=== PATIENT | female | born 1985 | race Caucasian/White ===

== ENCOUNTER 2017-01-12 19:37 | Emergency (ER) | payer MEDICARE, MEDICAID ==
[~2017-01-12] VITALS: Wt 37.6 kg
[~2017-01-12 19:37] MED LIST: ACET-2161 PO; ACET325T10 PO; BISA10SU22 RECTALLY; CALC1TAB16 PO; CEPH-583 PO; DIAZ10TA4 PO; DIPH25TA23 PO; ESCI20TA30 PO; GABA-215 PO; GUAI118S10 PO; IBUP200C62 PO; LEVE750T13 PO; LOPE2TAB24 PO; MAGN400O4 PO; NA P133E37 RECTALLY; NAPR-849 PO; POLY255P2 PO; PSEU30TA31 PO; SENN1TAB7 PO; SENN8.6T12 PO; TIZA4TAB4 PO; ZOLP5TAB8 PO; [UNRECOGNIZED DRUG - CODE] PO
[2017-01-12 19:42] VITALS: Wt 37.6 kg
--- OUTSIDE RECORDS SUMMARY | 2017-01-12 19:42 | XMS REPORT | Referral Summary ---
Author Author [facility] Organization [facility] Address Unknown Phone Unavailable Care Team Providers Care Vb Net Developer Name Role Phone Odilon Justice Primary Care Physician [phone] Encounter VC Date(s): 05/02/15 - 05/02/15 [facility] [address] [place] [id number] Discharge Disposition: 01-Home or Self Care Attending Physician: Willa Ashton APRN Admitting Physician: Willa Ashton APRN Vital Signs No data available for this section Problem List Condition Effective Dates Status Health Status Informant Blood 1998 Active transfusion(Confirme d) Chicken Resolved pox(Confirmed) Constipation Active (disorder)(Confirmed ) Constipation(Confirm Resolved ed) cva(Confirmed) 1982 Resolved Depression(Confirmed Active ) 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 seizures Medications acetaminophen 325 mg oral tablet tabs, Oral, q4hr, 0 Refill(s) Start Date: 03/08/14 Status: Ordered Ambien 5 mg oral tablet 1 tabs, Oral, Bedtime (once a day), as needed for sleep, 0 Refill(s) Start Date: 03/08/14 Status: Ordered Bactrim DS 800 mg-160 mg oral tablet 1 tabs, Oral, Daily, 0 Refill(s) Start Date: 03/08/14 Status: Ordered Bactroban 2% topical ointment 1 margarita, Topical, BID, Apply to noelle area with nystatin and desitin, # 30 g, 0 Refill(s), Pharmacy: [facility] [place] Start Date: 12/24/14 Status: Ordered bisacodyl 10 mg rectal enema 1 Each, Rectal, Daily, as needed for constipation, # 37.5 mL, 0 Refill(s) Start Date: 03/08/14 Status: Ordered Desitin 40% topical ointment 1 margarita, Topical, BID, apply to noelle area with nystatin and bactroban., # 30 g, 1 Refill(s), Pharmacy: [facility] [place] Start Date: 12/20/14 Status: Ordered escitalopram 20 mg oral tablet 1 tabs, Oral, Daily, 0 Refill(s) Start Date: 03/08/14 Status: Ordered gabapentin 300 mg oral capsule 1 caps, Oral, TID, 0 Refill(s) Start Date: 03/12/14 Status: Ordered Hibiclens 4% topical soap See Instructions, WASH SKIN FROM NECK DOWN 2 TO 3 TIMES A WEEK AT BEDTIME AND [facility]: [phone], # 240 mL, 0 Refill(s), Pharmacy: [facility] [place] Start Date: 01/08/15 Status: Ordered levETIRAcetam 750 mg oral tablet 1 tabs, Oral, BID, 0 Refill(s) Start Date: 03/08/14 Status: Ordered Midol PM 500 mg-25 mg oral tablet 1 tabs, Oral, q4hr, PRN, 0 Refill(s) Start Date: 03/08/14 Status: Ordered Milk of Magnesia 30 mL, Oral, Daily, as needed for constipation, [facility], 3 Refill( s) Start Date: 01/08/15 Stop Date: 01/11/15 Status: Ordered Miscellaneous DME DME Item PATIENT LIFT DX: QUADRIPLEGIC LISA REQUIRES A LIFT TO TRANSFER BETWEEN BED & CHAIR, WHEELCHAIR OR COMMODE AND SHE REQUIRES 2 OR MORE PERSONS TO ASSIST HER WITHOUT THE LIFT, SHE WOULD BE BED-CONFINED. THE LIFT IS FOR HOME USE., See Inst... Start Date: 09/30/15 Status: Ordered nystatin 100,000 units/g topical cream 1 margarita, Topical, BID, apply to noelle area with desitin and bactroban., # 30 g, 1 Refill(s), Pharmacy: [facility] [place] Start Date: 12/20/14 Status: Ordered Senna S 3 tabs, Oral, BID, 0 Refill(s) Start Date: 03/08/14 Status: Ordered tiZANidine 4 mg oral tablet 1 tabs, Oral, q4hr, prn, 0 Refill(s) Start Date: 03/08/14 Status: Ordered Results No data available for this section Immunizations Vaccine Date Refusal Reason influenza virus vaccine, live 07/24/13 Procedures No data available for this section Social History Social History Type Response Smoking Status Never smoker Assessment and Plan No data available for this section
--- OUTSIDE RECORDS SUMMARY | 2017-01-12 19:42 | XMS REPORT | Referral Summary ---
Author Author [facility] Organization [facility] Address Unknown Phone Unavailable Care Team Providers Care Manager Of Procurement Name Role Phone Odilon Justice Primary Care Physician [phone] Encounter VC Date(s): 05/23/15 - 05/23/15 [facility] [address] [place] [id number] Discharge Disposition: 01-Home or Self Care Attending [...] AT BEDTIME AND [facility]: [phone], # 240 mL, 0 Refill(s), Pharmacy: Pharmacy [...]
--- OUTSIDE RECORDS SUMMARY | 2017-01-12 19:42 | XMS REPORT | Referral Summary ---
Author Author [facility] Organization [facility] Address Unknown Phone Unavailable Care Team Providers Care Scrubber Operator Name Role Phone Odilon Justice Primary Care Physician [phone] Encounter VC Date(s): 05/09/15 - 05/09/15 [facility] [address] [place] [id number]- Discharge Disposition: 01-Home or Self Care Attending Physician: Aubrie Justice MD Admitting Physician: Aubrie Justice MD Vital Signs No data available for this [...] AT BEDTIME AND [facility]: [phone], # 240 mL, 0 Refill(s), Pharmacy: Pharmacy [...]
--- OUTSIDE RECORDS SUMMARY | 2017-01-12 19:42 | XMS REPORT | Referral Summary ---
Author Author [facility] Organization [facility] Address Unknown Phone Unavailable Care Team Providers Care Chemistry Quality Control Technician Name Role Phone Odilon Justice Primary Care Physician [phone] Encounter VC Date(s): 04/18/15 - 04/18/15 [facility] [address] [place] [id number] Discharge Disposition: 01-Home or [...] AT BEDTIME AND [facility]: [phone], # 240 mL, 0 Refill(s), Pharmacy: Pharmacy [...]
--- OUTSIDE RECORDS SUMMARY | 2017-01-12 19:42 | XMS REPORT | Referral Summary ---
Author Author [facility] Organization [facility] Address Unknown Phone Unavailable Care Team Providers Care Supervisor Lead Refinery Name Role Phone Odilon Justice Primary Care Physician [phone] Encounter VC Date(s): 06/20/15 - 06/20/15 [facility] [address] [place] [id number] Discharge Disposition: 01-Home or Self Care Attending [...] AT BEDTIME AND [facility]: [phone], # 240 mL, 0 Refill(s), Pharmacy: Pharmacy [...] 01/11/15 Status: Ordered Miscellaneous DME DME Item OT/PT Evaluate and TX Posture seating in wheelchair, See Instructions, # 1 Each, 0 Refill(s), Supply Start Date: 12/26/15 Status: Ordered Miscellaneous DME DME Item PATIENT [...] with desitin and bactroban., # 30 g, 0 Refill(s), Pharmacy: [facility] [place] Start Date: 12/22/15 Status: Ordered Senna S 3 tabs, Oral, [...]
--- OUTSIDE RECORDS SUMMARY | 2017-01-12 19:42 | XMS REPORT | Referral Summary ---
Author Author [facility] Organization [facility] Address Unknown Phone Unavailable Care Team Providers Care Cloud Architect Name Role Phone Odilon Justice Primary Care Physician [phone] Encounter VC Date(s): 06/06/15 - 06/06/15 [facility] [address] [place] [id number] Discharge Disposition: 01-Home or [...] AT BEDTIME AND [facility]: [phone], # 240 mL, 0 Refill(s), Pharmacy: Pharmacy [...]
--- OUTSIDE RECORDS SUMMARY | 2017-01-12 19:42 | XMS REPORT | Referral Summary ---
Author Author [facility] Organization [facility] Address Unknown Phone Unavailable Care Team Providers Care Rotor Blade Installer Name Role Phone Odilon Justice Primary Care Physician [phone] Encounter VC Date(s): 03/27/15 - 03/27/15 [facility] [address] [place] [address] Discharge Disposition: 01-Home or Self Care Attending [...] AT BEDTIME AND [facility]: [phone], # 240 mL, 0 Refill(s), Pharmacy: Pharmacy [...]
[2017-01-12] MEDS ORDERED: AMOX500C2 PO (19:50)
[2017-01-12] MEDS ORDERED: [UNRECOGNIZED DRUG - CODE] TOP (19:56)
[2017-01-12] MEDS ORDERED: ZINC57OI3 TOP (19:56)
[2017-01-12] MEDS ORDERED: TRIA15CR3 TOP (19:57)
[2017-01-12] MEDS ORDERED: HYDR30CR57 TOP (19:58)
--- NOTE | 2017-01-12 19:59 | ERPDOC ---
Departure Disposition Decision Date: Jan 12, 2017 Disposition Decision Time: 22:28 Disposition: 01 DISCHARGED HOME, SELF-CARE Impression Impression Impression: Primary Impression: Fever Fever type: unspecified Qualified Codes: R50.9 - Fever, unspecified Severity: Moderate Condition: Stable Seen By: Mid-level only Referrals: MIGUE IVORY MD (PCP) VALERIY BAGLEY MD (Family) Patient Instructions: Fever in Adults (ED) Problems/Meds/Labs Reviewed?: Yes Medications reviewed and manag: Yes Additional Instructions: The labs and xray today were normal. Urine does not show infection. I do want her to take the Amoxicillin as prescribed. If she continues to have fever on Tuesday then please follow up with her primary care provider. She may need to have her labs rechecked. If she should have any vomiting or stops taking fluids or eating then please return to ER. Follow up care ordered?: Yes Mental Status: Alert HPI - Fever General Chief Complaint: Fever Stated Complaint: HIGH FEVER Time Seen by Provider: 19:43 Source: other (Staff member at bedside) Exam Limitations: clinical condition HPI - Fever Initial Comments Mary Lou is a developmentally delayed woman who is brought to the ER today by her caregiver. She has had a fever up to 102 for the last 5 days. They had been treating at home with OTC medications but the fever has kept coming back. She has not had any vomiting or diarrhea or cough that the caregiver is aware of. Mary Lou is non verbal. Has continued to eat and drink ok at home. Caregiver here does state that she has been crying at times which is unlike her but otherwise has been her usual self. Has had regular BM. Occurred At: home Onset: Gradual Duration: other (Over the last 5 days) Fever Quality: greater than 102 F Fever Therapy MAMMOGRAPHY SUPERVISOR: Ibuprofen Associated Symptoms: DENIES: nausea/vomiting Allergies: Coded Allergies: milk (Verified Allergy, Intermediate, Makes lots of phlegm, more coughing. , 11/19/15) Past History Patient Surgical History Spinal fusion c-spine to sacrum Possible RN OUTPATIENT SURGERY shunt Past Medical History Hx Echocardiogram: No GI: constipation Neurological: other, seizures Psychological: depression Surgical History General: back Family History Family PMH: FOUND: other Vaccines Hx Influenza Vaccination: No Hx Pneumococcal Vaccination: No Social History Smoking Status: Never smoker Substance Use Type: does not use Alcohol Intake: none Review of Systems Constitutional Constitutional: fever, DENIES: chills, dizziness, fatigue, weakness ENMT Ears: DENIES: drainage Sinuses: DENIES: congestion, rhinorrhea Mouth/Throat: DENIES: drooling, painful swallowing, scratchy throat, sore throat Pulmonary Respiratory: DENIES: cough GI Upper Abdomen: DENIES: nausea, vomiting Lower Abdomen: DENIES: diarrhea Integumentary Skin: DENIES: rash Physical Exam General General Nourishment: well nourished, well developed, appears stated age, no acute distress, adult, thin General Body Habitus: well groomed Vitals and Pain First Documented Vital Signs Date Time Temp Pulse Resp B/P Pulse Ox O2 Delivery O2 Flow Rate FiO2 01/12/17 19:42 101.9 112 24 117/60 95 Room Air Weight: Kilograms: Height (feet): 5 Height (inches): 0 Triage Pain Scale: RN VS reviewed by Provider: Yes Normal Exams: Neck: Full range of motion, without adenopathy, JVD, bruits or thyromegaly Chest/Resp: Clear all gaxiola, with good airflow, and symmetry bilaterally CV: Regular rate and rhythm, without murmur or gallop, Pulses 2+ all extremities, capillary refill, <2 seconds all ext., no pedal edema noted Lymphatic: No lymphadenopathy, or lymphedema noted Integumentary: No rashes, hives, or bruising noted Neurologic: Patient is alert (And is moaning regularly in the room) ENMT (brief) ENMT Brief: FOUND: TM clear, TM good light reflex, ear canals clear, mucosa moist, normal dentition, normal tonsils, NOT FOUND: lesions, nasal erythema, nasal exudate, nasal swelling, petechiae, pharnyx erythema, tonsillar deviation Abdomen (brief) Abdominal Brief: FOUND: bowel normo active x4, other (ABdominal exam is difficult. Patient does guard with palpation but unsure if this is due to pain or because she does not like the exam. ) Differential Diagnoses Considering: Appendicitis, Influenza, Otitis Media, Pharyngitis, Pneumonia, UTI , Viral Syndrome, Other (sepsis) Progress Results/Orders Orders Procedure Category Date Status Time Cbc W/Auto LAB 01/12/17 Complete Diff-Reflex Manual Bmp - Basic Metabolic LAB 01/12/17 Complete Panel Ua, Dip Wreflex LAB 01/12/17 Complete Microsc & [employer] Hat Linux Administrator 19:55 Chest 1 View RAD 01/12/17 Taken Iv Lock (Ed Only) EDM 01/12/17 Transmitted 19:55 Normal Saline (Normal PHA 01/12/17 Complete Saline Iv) 20:15 Acetaminophen PHA 01/12/17 Complete (Tylenol Extra 20:15 Hepatic Panel LAB 01/12/17 Complete Lipase LAB 01/12/17 Complete Lab Results Laboratory Tests Test 01/12/17 20:22 01/12/17 22:10 White Blood Count 11.8T/MM3 Red Blood Count 4.00M/MM3 Hemoglobin 12.0GM/DL Hematocrit 35.6% Mean Corpuscular Volume 89.0UM3 Mean Corpuscular Hemoglobin 30.0UUG Mean Corpuscular Hemoglobin Concent 33.7GM/DL RDW Standard Deviation 37.2FL Platelet Count 316T/MM3 Mean Platelet Volume 10.1UM3 Immature Granulocyte % (Auto) 0.3% Neutrophils (%) (Auto) 79.9% Lymphocytes (%) (Auto) 10.1% Monocytes (%) (Auto) 8.8% Eosinophils (%) (Auto) 0.7% Basophils (%) (Auto) 0.2% Absolute Immature Granulocyte (auto 0.03T/MM3 Absolute Neutrophils (auto) 9.5T/MM3 Absolute Lymphocytes (auto) 1.2T/MM3 Absolute Monocytes (auto) 1.0T/MM3 Absolute Eosinophils (auto) 0.1T/MM3 Absolute Basophils (auto) 0.0T/MM3 Turbidity < 20 Sodium Level 141MEQ/L Potassium Level 3.9MEQ/L Chloride Level 101MEQ/L Carbon Dioxide Level 27MEQ/L Anion Gap 13MEQ/L Blood Urea Nitrogen 11.0MG/DL Creatinine 0.4MG/DL Glomerular Filtration Rate Calc 184 BUN/Creatinine Ratio 28RATIO Glucose Level 119MG/DL Calculated Osmolality 271MOSM/KG Calcium Level 8.5MG/DL Total Bilirubin 0.40MG/DL Conjugated Bilirubin 0.00MG/DL Unconjugated Bilirubin 0.00MG/DL Icterus Index < 2 Aspartate Amino Transf (AST/SGOT) 18U/L Alanine Aminotransferase (ALT/SGPT) 25U/L Alkaline Phosphatase 98U/L Total Protein 6.4G/DL Albumin 3.2G/DL Globulin 3.2G/DL Albumin/Globulin Ratio 1.0RATIO Lipase 129U/L Chemistry Specimen Hemolysis < 15 Urine Collection Type Straight cath Urine Color Yellow Urine Turbidity Clear Urine pH 8.0 Urine Specific Gordon 1.010 Urine Protein Negative Urine Glucose (UA) Negative Urine Ketones Negative Urine Blood Negative Urine Nitrite Negative Urine Bilirubin Negative Urine Urobilinogen 0.2EU/DL Urine Leukocyte Esterase Negative Urinalysis Comment Microscopic not ind. Medications Current ED Medications Sodium Chloride (Normal Saline IV) 1,000 ml @ 500 mls/hr Q2H ONCE IV Last administered on 01/12/17 20:15; Start 01/12/17 at 20:15; Stop 01/12/17 at 22:14 ; Status DC Acetaminophen (Tylenol Extra Strength) 500 mg O ONCE PO Last administered on 20:15; Start 01/12/17 at 20:15; Stop 01/12/17 at 20:16; Status DC Progress Progress WBC is 11.8 and neutrophils are 79.9 without bands. CMP is normal. Lipase is normal. UA is clear. Chest xray without cardiopulmonary process noted. NS 750ml bolus given IV x1 in Er. Did discuss results with [facility] staff. She has been eating and drinking well at home and has not had any vomiting or diarrhea. Will have her continue with the Amoxicillin as prescribed. Follow up with Dr bagley as needed. MOOSE TOMAS APRN Jan 12, 2017 19:59
[2017-01-12] MEDS ORDERED: MENT71OI TOP (20:01)
[2017-01-12] MEDS ORDERED: NAPR-849 PO (20:03)
[2017-01-12] MEDS ORDERED: NORMAL SALINE 1,000 ML IV ONE (20:15)
[2017-01-12] MEDS ORDERED: ACETAMINOPHEN 500 MG TABLET PO ONE (20:15)
--- NOTE | 2017-01-12 20:21 | NUR ---
XR Portable in room
[2017-01-12 20:28] LABS: BASOPHILS % (AUTO) 0.2 % (0-2); EOSINOPHILS # (AUTO) 0.1 T/MM3 (0-0.5); EOSINOPHILS % (AUTO) 0.7 % (0-4); HCT - HEMATOCRIT 35.6 % (36-46); IMMATURE GRANULOCYTE # (AUTO) 0.03 T/MM3 (0.00-0.03); IMMATURE GRANULOCYTE % (AUTO) 0.3 % (0.0-0.5); LYMPHOCYTES # (AUTO) 1.2 T/MM3 (1-4.8); LYMPHOCYTES % (AUTO) 10.1 % (23-45); MEAN CORPUSCULAR HGB CONC(MCHC 33.7 GM/DL (31-37); MEAN PLATELET VOLUME 10.1 UM3 (9.4-12.4); MONOCYTES % (AUTO) 8.8 % (0-9.0); NEUTROPHILS #(AUTO)-ABSOLUTE 9.5 T/MM3 (1.8-7.7); NEUTROPHILS % (AUTO) 79.9 % (33-66); WBC - WHITE BLOOD COUNT 11.8 T/MM3 (4.5-11.0)
[2017-01-12 20:39] LABS: ANION GAP 13 MEQ/L (5-15); BUN/CREATININE RATIO 28 RATIO (6-26); CALCIUM 8.5 MG/DL (8.4-10.2); CHLORIDE 101 MEQ/L (98-107); CO2 - CARBON DIOXIDE 27 MEQ/L (22-30); CREATININE 0.4 MG/DL (0.7-1.2); GLOMERULAR FILTRATION RATE 184; GLUCOSE 119 MG/DL (65-110); POTASSIUM 3.9 MEQ/L (3.6-5); SODIUM 141 MEQ/L (134-144)
[2017-01-12 21:42] LABS: ALBUMIN 3.2 G/DL (3.5-5.0); ALKALINE PHOSPHATASE 98 U/L (38-126); ALT (SGPT) 25 U/L (9-52); AST (SGOT) 18 U/L (14-36); LIPASE 129 U/L (23-300); TOTAL PROTEIN 6.4 G/DL (6.3-8.2)
[2017-01-12 22:20] LABS: BLOOD, URINE NEGATIVE (NEGATIVE); COLOR,URINE YELLOW (YELLOW); LEUKOCYTE ESTERASE ,URINE NEGATIVE (NEGATIVE); NITRITE,URINE NEGATIVE (NEGATIVE); UROBILINOGEN,URINE 0.2 EU/DL (NORMAL)
[2017-01-12 23:05] VITALS: BP 115/67; PULSE 97; RESP 24; TEMP 99.8; O2SAT 97
--- NOTE | 2017-01-13 08:10 | DI ---
Indication: ITS.REASON: fever PROCEDURE: CHEST 1 VIEW: Encounter: Initial Comparison: November 19, 2015 Findings: Chronically abnormal appearance of the lungs with prominent interstitial markings and some right midlung opacity. No new pleural effusion or pneumothorax. Cardiomediastinal contours are stable. Pulmonary vascularity cannot be evaluated on this supine view. Extensive thoracolumbar scoliosis fusion. Impression: Stable abnormal appearance of the chest. Recommend clinical and laboratory correlation for any evidence of pneumonia. .
== END 2017-01-12 23:05 | disposition home or self-care (01) ==
LOC: ED 19:37
DX: R50.9 Fever, unspecified (principal)
CPT/HCPCS: 36415; 71010; 80048; 80076; 81003; 83690; 85025; 96360; 96361; 99284; A9270; J7030; 36000

== ENCOUNTER 2017-01-22 15:55 | Emergency (ER) | payer MEDICARE, MEDICAID ==
[~2017-01-22] VITALS: Ht 157.5 cm; Wt 50.0 kg
[~2017-01-22 15:55] MED LIST changes: +AMOX500C2 PO; -CEPH-583 PO; +HYDR30CR57 TOP; +MENT71OI TOP; +TRIA15CR3 TOP; +ZINC57OI3 TOP; +[UNRECOGNIZED DRUG - CODE] TOP
[2017-01-22 16:00] VITALS: Ht 157.5 cm; Wt 50.0 kg
--- OUTSIDE RECORDS SUMMARY | 2017-01-22 16:01 | XMS REPORT | Continuity of Care Document ---
Author Author [facility] Organization [facility] Address Unknown Phone Unavailable Support Name Relationship Address Phone VALERIY HULL MD Caregiver [address] [place] [address] Unavailable JANUARYCECILIO DO Caregiver [address] [place] [address] Unavailable DALILA YOUNG (GUARDIAN) Next Of Kin [address] [place], [place] [id number] C Insurance Providers Guarantor Mary Lou Young Address [address] [place] [address] [phone] Email UNABLE TO ASK 17 Payer [facility] Plan Policy Number [id number] Subscriber's Name Mary Lou Young Relationship 18 Self Effective Date 16 Expiration Date 17 Payer Medicare Policy Number [id number] Subscriber's Name Mary Lou Young Relationship 18 Self Advance Directives Directive Response Recorded Date/Time Advanced Directives Type None 01/12/17 7:42pm Chief Complaint and Reason for Visit Chief Complaint Fever Reason for Visit Fever Problems Active Problems Medical Problem Onset Date Status Aspiration pneumonia Unknown Acute Cardiomegaly Unknown Acute Cerebral palsy Unknown Chronic Complete immobility due to severe physical disability or frailty Unknown Acute Constipation Unknown Chronic Constipation Unknown Acute Early UTI Unknown Acute HCAP (healthcare-associated pneumonia) Unknown Acute Head contusion Unknown Acute Hypotensive episode Unknown Acute Hypovolemia Unknown Acute Mental retardation Unknown Chronic Pneumonia Unknown Acute Quadriplegia Unknown Chronic Seizure disorder Unknown Chronic Subconjunctival Bleed Unknown Acute pulled from wheelchair no obvious trauma Unknown Acute Surgical Problem Onset Date Status H/O spinal fusion Unknown Acute Past Problems Medical Problem Onset Date Fever Unknown Medications Current Home Medications Medication Dose Units Route Directions Days Qty Instructions Start Date Acetaminophen 325 Mg Tablet 2 Tab Oral Every 4 Hours as needed for Pain 05/12/12 Acetaminophen (Acetaminophen Extra Strength) 500 Mg Tablet 2 Tab Oral Every 4 Hours as needed for Pain 07/08/15 Amoxicillin 500 Mg Capsule 500 Mg Oral Twice A Day 01/12/17 Bisacodyl (Biscolax) 10 Mg Supp.rect 1 Supp Rectally As Needed Calcium Carbonate 500 Mg Tablet 2 Tab Oral Every 4 Hours as needed for Indigestion 07/08/15 Diazepam 10 Mg Tablet 10 Mg Oral Bedtime prior to dental appts 11/04 Diphenhydramine Hcl 25 Mg Tablet 25-50 Mg Oral Every 4 Hours as needed for Allery Symptoms 11/19/15 Escitalopram Oxalate 20 Mg Tablet 20 Mg Oral Daily 05/12/12 Gabapentin 300 Mg Capsule 600 Mg Oral Three Times A Day 09/06/13 Guaifenesin/Dextromethorphan (Tussin Dm Clear Liquid) 118 Ml Syrup 10 Ml Oral Every 4 Hours Prn as needed for Cough 07/09/15 Hydrocortisone (Proctocream-Hc) 30 Gm Cream.appl 1 Applic Topically Twice A Day as needed for Prn Orders 01/12/17 Ibuprofen 200 Mg Capsule 2 Cap Oral Every 4 Hours as needed for Headache 07/09/15 Levetiracetam 750 Mg Tab.er.24h 750 Mg Oral Twice A Day 05/12/12 Loperamide Hcl (Loperamide) 2 Mg Tablet 4 Mg Oral As Needed as needed for Constipation 07/08/15 Mag Hydrox/Al Hydrox/Simeth (Antacid Anti-Gas Liquid) 355 Ml Oral.susp 20 Ml Oral Every 4 Hours Prn 07/09/15 Magnesium Hydroxide (Milk Of Magnesia) 400 Mg/5 Ml Oral.susp 30 Ml Oral Daily as needed for Constipation 07/09/15 Menthol/Zinc Oxide (Calmoseptine Ointment) 71 Gm Oint...g. 1 Applic Topically Twice A Day as needed for Prn Orders Apply 2 times a day. Na Phos,M-B/Na Phos,Di-Ba (Enema Ready To Use) 133 Ml Enema 1 Enema Rectally As Needed 07/09/15 Naproxen Sodium (Midol) 220 Mg Tablet 220 Mg Oral Twice Daily With Meals as needed for Pain 01/12/17 Nyst/Sedit/Mupir 1 Applic Topically Twice A Day as needed for Prn Orders 01/12/17 Polyethylene Glycol 3350 255 Gm Powder 17 G Oral Twice A Day Pseudoephedrine Hcl (Sudogest) 30 Mg Tablet 30 Mg Oral Twice A Day as needed for Cough/Congestion 11/19/15 Sennosides (Senna Lax) 8.6 Mg Tablet 2 Tab Oral Daily as needed for Constipation 03/04/15 Sennosides/Docusate Sodium (Senna-Docusate Sodium Tablet) 1 Each Tablet 2 Tab Oral Twice A Day 07/08/15 Tizanidine Hcl 4 Mg Tablet 4 Mg Oral Four Times Daily 02/07/15 Triamcinolone (Triamcinolone Acetonide) 15 Applic/15 G Cr 1 Applic Topically Twice A Day 01/12/17 Zinc Oxide (Desitin) 57 Gm Cream..g. 1 Applic Topically Four Times Daily 01/12/17 Zolpidem Tartrate 5 Mg Tablet 5 Mg Oral Bedtime as needed for Sleeplessness 03/04/15 Social History Social History Problem Response Recorded Date/Time Onset Date Status Hx Substance Use No 01/12/2017 8:48pm Not Applicable Not Applicable Hx Alcohol Use No 01/12/2017 8:48pm Not Applicable Not Applicable Has the pt used tobacco in the last 12 months No 02/07/2015 10:00pm Not Applicable Not Applicable Tobacco Usage none 02/07/2015 8:33pm Not Applicable Not Applicable Query Response Start Date Stop Date Smoking Status Never smoker Hospital Discharge Instructions No hospital discharge instructions. Plan of Care Discharge Date 01/12/17 11:05pm Disposition 01 DISCHARGED HOME, SELF-CARE Condition at Discharge Stable Instructions/Education Provided Fever in Adults (ED) Prescriptions See Medication Section Referrals VALERIY HULL MD Address: [address] [place] [address] [phone] Additional Instructions/Education The labs and xray today were normal. Urine does not show infection. I do want her to take the Amoxicillin as prescribed. If she continues to have fever on Tuesday then please follow up with her primary care provider. She may need to have her labs rechecked. If she should have any vomiting or stops taking fluids or eating then please return to ER. Care Plan and Goals Physician Care Plan Problem:Fever Goal: Follow up with primary care provider Instructions: Take medications and follow care plan as discussed/written Functional Status No functional status results. Allergies, Adverse Reactions, Alerts Allergen Type Severity Reaction Status Last Updated Milk Allergy Intermediate Makes lots of phlegm, more coughing. Active 11/04 Immunizations Query Response on File Recorded Date/Time Hx Influenza Vaccination No 03/04/15 5:58pm Hx Pneumococcal Vaccination No 03/04/15 5:58pm Hx Influenza Vaccination No 03/04/15 5:58pm Vital Signs Acute Vital Signs Vital Response Date/Time Temperature (Fahrenheit) 99.8 deg F (96.8 - 99.1) 01/12/2017 11:05pm Temperature (Calculated Celsius) 37.01668 degrees C (36.0 - 37.3) 01/12/2017 11:05pm Pulse Rate (adult) 97 bpm (60 - 100) 01/12/2017 11:05pm Respiratory Rate 24 breaths/min (10 - 20) 01/12/2017 11:05pm O2 Sat by Pulse Oximetry 97 % (90 - 100) 01/12/2017 11:05pm Blood Pressure 115/67 mm Hg 01/12/2017 11:05pm Height (Inches) 0 inches 01/12/2017 7:42pm Weight (Kilograms) 37.600 kg 01/12/2017 7:42pm Body Mass Index (BMI) .0 01/12/2017 7:42pm Results Laboratory Results Test Name Result Units Flags Reference Collection Date/Time Result Date/ Time Comments White Blood Count 11.8 T/MM3 H 4.5-11.0 01/12/2017 8:22pm 01/12/2017 8: 28pm Red Blood Count 4.00 M/MM3 4.00-5.20 01/12/2017 8:22pm 01/12/2017 8: 28pm Hemoglobin 12.0 GM/DL 12-16 01/12/2017 8:pm 01/12/2017 8:28pm Hematocrit 35.6 % L 36-46 01/12/2017 8:22pm 01/12/2017 8:28pm Mean Corpuscular Volume 89.0 UM3 80-100 01/12/2017 8:22pm 01/12/2017 8: 28pm Mean Corpuscular Hemoglobin 30.0 UUG 26-34 01/12/2017 8:22pm 2016 8:28pm Mean Corpuscular Hemoglobin Concent 33.7 GM/DL 31-37 01/12/2017 8:pm 01/12/2017 8:28pm RDW Standard Deviation 37.2 FL 36.9-50.2 01/12/2017 8:01/12/2017 8 :28pm Platelet Count 316 T/MM3 130-400 01/12/2017 8:01/12/2017 8:28pm Mean Platelet Volume 10.1 UM3 9.4-12.4 01/12/2017 8:01/12/2017 8: 28pm Neutrophils (%) (Auto) 79.9 % H 33-66 01/12/2017 8:01/12/2017 8: 28pm Lymphocytes (%) (Auto) 10.1 % L 23-45 01/12/2017 8:01/12/2017 8: 28pm Monocytes (%) (Auto) 8.8 % 0-9.0 01/12/2017 8:01/12/2017 8:28pm Eosinophils (%) (Auto) 0.7 % 0-4 01/12/2017 8:01/12/2017 8:28pm Basophils (%) (Auto) 0.2 % 0-2 01/12/2017 8:01/12/2017 8:28pm Immature Granulocyte % (Auto) 0.3 % 0.0-0.5 01/12/2017 8:2016 8:28pm Absolute Neutrophils (auto) 9.5 T/MM3 H 1.8-7.7 01/12/2017 8:2016 8:28pm Absolute Lymphocytes (auto) 1.2 T/MM3 1-4.8 01/12/2017 8:2016 8:28pm Absolute Monocytes (auto) 1.0 T/MM3 H 0-0.8 01/12/2017 8:2016 8:28pm Absolute Eosinophils (auto) 0.1 T/MM3 0-0.5 01/12/2017 8:2016 8:28pm Absolute Basophils (auto) 0.0 T/MM3 0-0.2 01/12/2017 8:01/12/2017 8:28pm Absolute Immature Granulocyte (auto 0.03 T/MM3 0.00-0.03 01/12/2017 8: 01/12/2017 8:28pm Icterus Index < 2 0-7 01/12/2017 8:01/12/2017 9:42pm Chemistry Specimen Hemolysis < 15 0-25 01/12/2017 8:01/12/2017 9 :42pm 0-25: Specimen Exhibited No Hemolysis. Turbidity < 20 0-20 01/12/2017 8:01/12/2017 9:42pm Sodium Level 141 MEQ/L 134-144 01/12/2017 8:01/12/2017 8:39pm Potassium Level 3.9 MEQ/L 3.6-5 01/12/2017 8:01/12/2017 8:39pm Chloride Level 101 MEQ/L 98-107 01/12/2017 8:01/12/2017 8:39pm Carbon Dioxide Level 27 MEQ/L 22-01/12/2017 8:01/12/2017 8: 39pm Anion Gap 13 MEQ/L 5-15 01/12/2017 8:01/12/2017 8:39pm Blood Urea Nitrogen 11.0 MG/DL 7-01/12/2017 8:01/12/2017 8: 39pm Creatinine 0.4 MG/DL L 0.7-1.2 01/12/2017 8:01/12/2017 8:39pm BUN/Creatinine Ratio 28 RATIO H 03-1401/12/2017 8:01/12/2017 8: 39pm Glomerular Filtration Rate Calc 184 01/12/2017 8:01/12/2017 8: 39pm Glucose Level 119 MG/DL H 65-110 01/12/2017 8:01/12/2017 8:39pm Calculated Osmolality 271 MOSM/KG 261-280 01/12/2017 8:01/12/2017 8:39pm Calcium Level 8.5 MG/DL 8.4-10.2 01/12/2017 8:01/12/2017 8:39pm Total Bilirubin 0.40 MG/DL 0.20-1.30 01/12/2017 8:01/12/2017 9: 42pm Unconjugated Bilirubin 0.00 MG/DL 0.00-1.10 01/12/2017 8:2016 9:42pm Conjugated Bilirubin 0.00 MG/DL 0.00-0.30 01/12/2017 8:01/12/2017 9:42pm Alkaline Phosphatase 98 U/L 38-126 01/12/2017 8:01/12/2017 9:42pm Total Protein 6.4 G/DL 6.3-8.2 01/12/2017 8:pm 01/12/2017 9:42pm Albumin 3.2 G/DL L 3.5-5.0 01/12/2017 8:01/12/2017 9:42pm Globulin 3.2 G/DL 2.4-3.6 01/12/2017 8:pm 01/12/2017 9:42pm Albumin/Globulin Ratio 1.0 RATIO L 1.1-2.2 01/12/2017 8:pm 01/12/2017 9:42pm Aspartate Amino Transf (AST/SGOT) 18 U/L 14-36 01/12/2017 8:pm 2016 9:42pm Alanine Aminotransferase (ALT/SGPT) 25 U/L 9-52 01/12/2017 8:01/12 9:42pm Lipase 129 U/L 23-300 01/12/2017 8:01/12/2017 9:42pm Urine Collection Type STRAIGHT CATH 01/12/2017 10:01/12/2017 10:20pm Urine Color YELLOW YELLOW 01/12/2017 10:01/12/2017 10:20pm Urine Turbidity CLEAR CLEAR 01/12/2017 10:1001/12/2017 10:20pm Urine Specific [place] 1.010 L 1.015-1.025 01/12/2017 10:102016 10:20pm Urine pH 8.0 5.0-8.0 01/12/2017 10:1001/12/2017 10:20pm Urine Leukocyte Esterase NEGATIVE NEGATIVE 01/12/2017 10:2016 10:20pm Urine Nitrite NEGATIVE NEGATIVE 01/12/2017 10:1001/12/2017 10: 20pm Urine Protein NEGATIVE NEGATIVE 01/12/2017 10:1001/12/2017 10: 20pm Urine Glucose (UA) NEGATIVE NEGATIVE 01/12/2017 10:1001/12/2017 10 :20pm Urine Ketones NEGATIVE NEGATIVE 01/12/2017 10:10pm 01/12/2017 10: 20pm Urine Urobilinogen 0.2 EU/DL NORMAL 01/12/2017 10:10pm 01/12/2017 10: 20pm Urine Bilirubin NEGATIVE NEGATIVE 01/12/2017 10:10pm 01/12/2017 10: 20pm Urine Blood NEGATIVE NEGATIVE 01/12/2017 10:10pm 01/12/2017 10:20pm Urinalysis Comment MICROSCOPIC NOT IND. 01/12/2017 10:10pm 2016 10:20pm Procedures No known history of procedures. Encounters Encounter Location Arrival/Admit Date Discharge/Depart Date Attending Provider Departed Emergency Room [facility] 01/12/17 7:37pm 01/12/17 11: 05pm CECILIO LU DO Recent Diagnosis
--- NOTE | 2017-01-22 16:16 | NUR ---
VISUAL ACUITY UNABLE TO DO VISUAL ACUITY DUE TO CEREBAL PALSY AND PT. BEING NON VERBAL.
[2017-01-22] MEDS ORDERED: ERYT1OIN7 OP (16:33)
--- NOTE | 2017-01-22 16:35 | ERPDOC ---
Departure Disposition Decision Date: January 22, 2017 Disposition Decision Time: 16:31 Disposition: 01 DISCHARGED HOME, SELF-CARE Impression Impression Impression: Primary Impression: Conjunctivitis Qualified Codes: H10.32 - Unspecified acute conjunctivitis, left eye Additional Impression: Person with feared complaint, no diagnosis made Severity: Moderate Condition: Stable Seen By: Physician only Referrals: VALERIY HULL MD (Family) 3 Days Patient Instructions: Conjunctivitis (ED) Problems/Meds/Labs Reviewed?: Yes Medications reviewed and manag: Yes Additional Instructions: Mary Lou has an eye infection. Use the antibiotic as prescribed to clear this infection. The redness and mottling on her feet does not appear to be pathologic - keep her feet covered when cool and uncovered when warm. Elevate her feet at least twice daily to encourage circulation. Follow up care ordered?: Yes Mental Status: Alert Scripts Erythromycin Base (Erythromycin) 1 Gm Oint...g. 1 INCH OP QID for 5 Days Prov: JANUARYCECILIO DO 01/22/17 HPI - EENT General General Chief Complaint: Eye Problems Stated Complaint: LEFT EYE SWOLLEN, RIGHT FOOT SWOLLEN,COLD Time Seen by Provider: 16:08 Source: RN/MD Exam Limitations: clinical condition HPI - EENT General Initial Comments 31yo woman with h/o CP presented to the ED for left eye swelling/drainage and right leg 'redness' and 'swelling'. Pt awoke this AM with drainage and matting of her left eye. She has had 'swelling' and 'redness' of her right foot off/on for the last day or two. Occurred At: home Onset/Timing: Rapid Duration: 12-24 hrs Location: eye (L) Prearrival Treatment: no prearrival treatment Allergies: Coded Allergies: milk (Verified Allergy, Intermediate, Makes lots of phlegm, more coughing. , 01/22/17) Past History Unable to Obtain PMH Due to: clinical condition Patient Medical History (1) Cerebral palsy (2) Mental retardation Patient Surgical History Spinal fusion c-spine to sacrum Possible LENS DOTTER shunt Past Medical History Hx Echocardiogram: No GI: constipation Neurological: other, seizures Psychological: depression Surgical History General: back Family History Family PMH: FOUND: other Vaccines Hx Influenza Vaccination: No Hx Pneumococcal Vaccination: No Social History Substance Use Type: does not use Alcohol Intake: none Review of Systems Unable to Obtain ROS Due to: clinical condition Physical Exam General General Nourishment: well nourished, well developed, no acute distress, adult, thin General Body Habitus: disheveled Vitals and Pain First Documented Vital Signs Date Time Temp Pulse Resp B/P Pulse Ox O2 Delivery O2 Flow Rate FiO2 01/22/17 16:00 99.2 95 22 112/69 91 Room Air Weight: Kilograms: 50.000 Height (feet): 5 Height (inches): 2.00 Triage Pain Scale: RN VS reviewed by Provider: Yes Eyes (brief) Eyes Brief: found: EOMI, PERRL, other (Thick, purulent exudate of left eye with dried matter surrounding. Mild ptosis on left.), not found: foreign body, papilledema, scleral icterus Integumentary (brief) Integumentary Brief: FOUND: pink, warm Comments Cutis marmorata b/l LE's without edema, induration, or fluctuance. DP/PT intact b/l Supervisory Exam Head: atraumatic Nares: no exudate Neck: trachea midline Chest: symmetric Abdomen: non-distended Musculoskeletal: no deformity or atrophy Neurological: no abnormal movements Psychological: alert Differential Diagnoses Considering: Cellulitis, Conjunctivitis, Corneal Foreign Body, Pharyngitis, Sinusitis, URI Progress Progress Progress Pt with obvious bacterial conjunctivitis and no cause of her LE sx. Will treat pts conjuncitivitis. Pts adjustment supervisor voiced understanding. CECILIO LU DO January 22, 2017 16:35
[2017-01-22 16:48] VITALS: BP 110/62; PULSE 86; RESP 22; TEMP 99.2; O2SAT 91
--- NOTE | 2017-01-22 16:48 | NUR ---
DISCHARGE WRITTEN INSTRUCTIONS WITH ERYTHROMYCIN RX REVIEWED AND SENT WITH [facility] CAREGIVER. CAREGIVER VERBALIZES UNDERSTANDING OF DI AND MEDICATION, DENIES QUESTIONS. PT EXITS ER BY W/C PER [facility] STAFF AT THIS TIME.
== END 2017-01-22 16:48 | disposition home or self-care (01) ==
LOC: ED 15:55
DX: H10.32 Unspecified acute conjunctivitis, left eye (principal); L53.9 Erythematous condition, unspecified; M79.89 Other specified soft tissue disorders

== ENCOUNTER 2017-02-03 16:34 | Inpatient (IN) | payer MEDICARE, MEDICAID ==
[~2017-02-03] VITALS: Ht 147.3 cm; Wt 38.2 kg
--- OUTSIDE RECORDS SUMMARY | 2017-02-03 16:38 | XMS REPORT | Continuity of Care Document ---
Author Author [facility] Organization [facility] Address Unknown Phone Unavailable Support Name Relationship Address Phone VALERIY HULL MD Caregiver [address] [place] [address] Unavailable JANUARYCECILIO DO Caregiver [address] [place] [address] Unavailable DALILA YOUNG (GUARDIAN) Next Of Kin [address] [place], [place] [id number] C Insurance Providers Guarantor Mary Lou Young Address [address] [place] [address] [phone] Email UNABLE TO ASK 17 Payer [facility] Plan Policy Number [id number] Subscriber's Name YoungMary Lou M Relationship 18 Self Effective Date 17 Expiration Date 17 Payer Medicare Policy Number [id number] Subscriber's Name HectorMary Lou Hinds Relationship 18 Self Chief Complaint and Reason for Visit Chief Complaint Eye Problems Reason for Visit [id number] Conjunctivitis Problems Active Problems Medical Problem Onset Date [...] Acute Past Problems Medical Problem Onset Date Conjunctivitis Unknown Fever Unknown Person with feared complaint, no diagnosis made Unknown Medications Current Home Medications Medication Dose Units Route Directions Days Qty Instructions Start Date Acetaminophen 325 Mg Tablet 2 Tab Oral Every 4 Hours as needed for Pain 05/12/12 Acetaminophen (Acetaminophen Extra Strength) 500 Mg Tablet 2 Tab Oral Every 4 Hours as needed for Pain 07/08/15 Bisacodyl (Biscolax) 10 Mg Supp.rect 1 Supp Rectally As Needed Calcium Carbonate 500 Mg Tablet 2 Tab Oral Every 4 Hours as needed for Indigestion 07/08/15 Diazepam 10 Mg Tablet 10 Mg Oral Bedtime prior to dental appts 11/04 Diphenhydramine Hcl 25 Mg Tablet 25-50 Mg Oral Every 4 Hours as needed for Allery Symptoms 11/19/15 Erythromycin Base (Erythromycin) 1 Gm Oint...g. 1 Inch Ophthalmic Four Times Daily 5 Days 01/22/17 Escitalopram Oxalate 20 Mg Tablet 20 Mg [...] none 02/07/2015 8:33pm Not Applicable Not Applicable Hospital Discharge Instructions No hospital discharge instructions. Plan of Care Discharge Date 01/22/17 4:48pm Disposition 01 DISCHARGED HOME, SELF-CARE Condition at Discharge Stable Instructions/Education Provided Conjunctivitis (ED) Prescriptions See Medication Section Referrals VALERIY HULL MD Order Date: 3 Days Address: [address] [place] [phone] Note: Additional Instructions/Education Mary Lou has an eye infection. Use the antibiotic as prescribed to clear this infection. The redness and mottling on her feet does not appear to be pathologic - keep her feet covered when cool and uncovered when warm. Elevate her feet at least twice daily to encourage circulation. Care Plan and Goals Physician Care Plan Problem: Conjunctivitis Goal: Follow up with primary care provider Instructions: Take medications and follow care plan as discussed/written Functional Status No functional status results. Allergies, Adverse Reactions, Alerts Allergen Type Severity Reaction Status Last Updated Milk Allergy Intermediate Makes lots of phlegm, more coughing. Active 03/05 Immunizations Query Response on File Recorded Date/Time Hx Influenza Vaccination No 03/04/15 5:58pm Hx Pneumococcal Vaccination No 03/04/15 5:58pm Hx Influenza Vaccination No 03/04/15 5:58pm Vital Signs Acute Vital Signs Vital Response Date/Time Temperature (Fahrenheit) 99.2 deg F (96.8 - 99.1) 01/22/2017 4:00pm Temperature (Calculated Celsius) 37.31877 degrees C (36.0 - 37.3) 01/22/2017 4:00pm Pulse Rate (adult) 95 bpm (60 - 100) 01/22/2017 4:00pm Respiratory Rate 22 breaths/min (10 - 20) 01/22/2017 4:00pm O2 Sat by Pulse Oximetry 91 % (90 - 100) 01/22/2017 4:00pm Blood Pressure 112/69 mm Hg 01/22/2017 4:00pm Height (Feet) 5 feet 01/22/2017 4:00pm Height (Inches) 2.00 inches 01/22/2017 4:00pm Weight (Kilograms) 50.000 kg 01/22/2017 4:00pm Body Mass Index (BMI) 20.0 01/22/2017 4:00pm Results Laboratory Results Test Name Result Units Flags Reference Collection Date/Time Result Date/ Time Comments White Blood Count 11.8 T/MM3 H 4.5-11.0 01/12/2017 8:22pm 01/12/2017 8: 28pm Red Blood Count 4.00 M/MM3 4.00-5.20 01/12/2017 8:pm 01/12/2017 8: 28pm Hemoglobin 12.0 GM/DL 12-16 01/12/2017 8:pm 01/12/2017 8:28pm Hematocrit 35.6 % L 36-46 01/12/2017 8:pm 01/12/2017 8:28pm Mean Corpuscular Volume 89.0 UM3 80-100 01/12/2017 8:pm 01/12/2017 8: 28pm Mean Corpuscular Hemoglobin 30.0 UUG 26-34 01/12/2017 8:pm 2016 8:28pm Mean Corpuscular Hemoglobin Concent 33.7 [...] 9:42pm Total Protein 6.4 G/DL 6.3-8.2 01/12/2017 8:01/12/2017 9:42pm Albumin 3.2 G/DL L 3.5-5.0 01/12/2017 8:01/12/2017 9:42pm Globulin 3.2 G/DL 2.4-3.6 01/12/2017 8:01/12/2017 9:42pm Albumin/Globulin Ratio 1.0 RATIO L 1.1-2.2 01/12/2017 8:01/12/2017 9:42pm Aspartate Amino Transf (AST/SGOT) 18 U/L 14-36 01/12/2017 8:2016 9:42pm Alanine Aminotransferase (ALT/SGPT) 25 U/L 9-52 01/12/2017 8:01/12 9:42pm Lipase 129 U/L 23-300 01/12/2017 8:pm 01/12/2017 9:42pm Urine Collection Type STRAIGHT CATH 01/12/2017 10:01/12/2017 10:20pm Urine Color YELLOW YELLOW 01/12/2017 10:01/12/2017 10:20pm Urine Turbidity CLEAR CLEAR 01/12/2017 10:01/12/2017 10:20pm Urine Specific [place] 1.010 L 1.015-1.025 01/12/2017 10:102016 10:20pm Urine pH 8.0 5.0-8.0 01/12/2017 10:1001/12/2017 10:20pm Urine Leukocyte Esterase NEGATIVE NEGATIVE 01/12/2017 10:2016 10:20pm Urine Nitrite NEGATIVE NEGATIVE 01/12/2017 10:01/12/2017 10: 20pm Urine Protein NEGATIVE NEGATIVE 01/12/2017 10:01/12/2017 10: 20pm Urine Glucose (UA) NEGATIVE NEGATIVE 01/12/2017 10:1001/12/2017 10 :20pm Urine Ketones NEGATIVE NEGATIVE 01/12/2017 10:10pm 01/12/2017 10: 20pm Urine Urobilinogen 0.2 EU/DL NORMAL 01/12/2017 10:10pm 01/12/2017 10: 20pm Urine Bilirubin NEGATIVE NEGATIVE 01/12/2017 10:10pm 01/12/2017 10: 20pm Urine Blood NEGATIVE NEGATIVE 01/12/2017 10:10pm 01/12/2017 10:20pm Urinalysis Comment MICROSCOPIC NOT IND. 01/12/2017 10:10pm 2016 10:20pm Procedures Procedure Status Date Provider(s) Routine venipuncture Completed 01/12/17 Chest x-ray 1 view frontal Completed 01/12/17 Metabolic panel total ca Completed 01/12/17 Hepatic function panel Completed 01/12/17 Urinalysis auto w/o scope Completed 01/12/17 Assay of lipase Completed 01/12/17 Complete cbc w/auto diff wbc Completed 01/12/17 Hydration iv infusion init Completed 01/12/17 Hydrate iv infusion add-on Completed 01/12/17 Emergency dept visit Completed 01/12/17 [id number] ITEM OR SERVICE Completed 01/12/17 [id number]"INFUSION, NORMAL SALINE SOLUTION , 1000 CC" Completed 01/12/17 Encounters Encounter Location Arrival/Admit Date Discharge/Depart Date Attending Provider Departed Emergency Room [facility] 01/22/17 3:55pm 01/22/17 4: 48pm CECILIO LU DO Departed Emergency Room [facility] 01/12/17 7:37pm 01/12/17 11: 05pm CECILIO LU DO Recent Diagnosis
--- NOTE | 2017-02-03 17:07 | ERPDOC ---
Departure Disposition Decision Date: February 03, 2017 Disposition Decision Time: 17:13 Disposition: 02 TO [facility] Impression Impression Impression: Primary Impression: Acute cholecystitis Severity: Moderate Condition: Stable Seen By: Mid-level only Referrals: VALERIY HULL MD (Family) Problems/Meds/Labs Reviewed?: Yes Medications reviewed and manag: Yes Follow up care ordered?: Yes Mental Status: Alert HPI - Abdominal Pain General Chief Complaint: Abdominal Pain Stated Complaint: KIDNEY STONES Time Seen by Provider: 16:40 Source: patient History/Exam Limitations: no limitations HPI - Abdominal Pain Initial Comments Mary Lou presents to ER today with her mother and her caregiver. She is a non verbal wheelchair bound patient. Over the last several weeks she has been having some fever off and on and has been indicating that she is in pain. Today had an US of her gallbladder to evaluate this as a possible source of her pain and fever. US does show probably acute cholecystitis. She is to be admitted to [facility] for possible cholecystectomy. HPI is obtained from caregiver and her mother. Occurred At: home Onset: Gradual Duration: other (Over the last several weeks. ) Activities at Onset: none Associated Symptoms: fever/chills (off and on), DENIES: nausea/vomiting Hx of Similar Symptoms: No Allergies: Coded Allergies: milk (Verified Allergy, Intermediate, Makes lots of phlegm, more coughing. , 02/03/17) Past History Patient Surgical History Spinal fusion c-spine to sacrum Possible EVISCERATOR shunt Past Medical History Hx Echocardiogram: No GI: constipation Neurological: other, seizures Psychological: depression Surgical History General: back Family History Family PMH: FOUND: other Vaccines Hx Influenza Vaccination: No Hx Pneumococcal Vaccination: No Social History Substance Use Type: does not use Alcohol Intake: none Review of Systems Unable to Obtain ROS Due to: clinical condition (non verbal) Constitutional Constitutional: chills, fever, DENIES: appetite decrease, fatigue Pulmonary Respiratory: DENIES: cough GI Upper Abdomen: DENIES: nausea, vomiting Lower Abdomen: DENIES: diarrhea Integumentary Skin: DENIES: rash Physical Exam General General Nourishment: adult, thin, other (She does moan out often, is this but does not appear emaciated. Is alert) General Body Habitus: well groomed Vitals and Pain First Documented Vital Signs Date Time Temp Pulse Resp B/P Pulse Ox O2 Delivery O2 Flow Rate FiO2 02/03/17 16:55 99.8 99 16 101/81 93 Room Air Weight: Kilograms: Height (feet): 5 Height (inches): 2.00 Triage Pain Scale: RN VS reviewed by Provider: Yes Normal Exams: Neck: Full range of motion, without adenopathy, JVD, bruits or thyromegaly Chest/Resp: Clear all gaxiola, with good airflow, and symmetry bilaterally CV: Regular rate and rhythm, without murmur or gallop, Pulses 2+ all extremities, capillary refill, <2 seconds all ext., no pedal edema noted Abdomen: Bowel sounds positive, soft, non-tender, non-distended, no hepatosplenomegaly, masses or bruits noted Integumentary: No rashes, hives, or bruising noted Neurologic: Patient is alert Psychiatric: Patient exhibits, appropriate attention, emotion and affect Differential Diagnoses Considering: Biliary Colic, Constipation, Other (acute cholecystitis, pancreatitis, ) Progress Results/Orders Orders Procedure Category Date Status Time Cbc W/Auto LAB 02/03/17 Complete Diff-Reflex Manual Cmp - Comprehensive LAB 02/03/17 Complete Metabolic Lipase LAB 02/03/17 Complete Iv Lock (Ed Only) EDM 02/03/17 Transmitted 16:37 Blood Culture MADINA 02/03/17 In Process 16:39 Lactate - Lactic Acid LAB 02/03/17 Complete Procalcitonin LAB 02/03/17 Complete 16:39 Lactate - Lactic Acid LAB 02/03/17 Logged 21:09 Physician Consult CONS 02/03/17 Transmitted 17:10 Npo After Midnight SCARLETT 02/03/17 In Process 17:10 Npo: Nothing By Mouth DIET 02/04/17 Transmitted Breakfast Resuscitation Order ADMIT 02/03/17 Transmitted 17:10 Place In Facility As: ADMIT 02/03/17 Transmitted 17:13 Compression Type Scd/ SCARLETT 02/03/17 In Process Charles Hose 17:14 Dysphagia: Pureed Diet DIET 02/03/17 Complete Dinner Normal Saline (Normal PHA 02/03/17 In Process Saline Iv) 17:30 Ertapenem (Invanz) PHA 02/03/17 In Process 18:00 Cbc W/Auto LAB 02/04/17 Verified Diff-Reflex Manual 04:00 Bmp - Basic Metabolic LAB 02/04/17 Verified Panel 04:00 Ondansetron Inj PHA 02/03/17 In Process (Zofran) 18:00 Morphine Sulfate PHA 02/03/17 In Process (Morphine) 18:00 Daily Weight SCARLETT 02/03/17 In Process 17:46 Measure Intake And SCARLETT 02/03/17 In Process Output 17:46 Measure Vital Signs SCARLETT 02/03/17 In Process 17:46 Up In Room With Assist SCARLETT 02/03/17 In Process 17:[address] 02/03/17 Logged Screen 18:00 Levetiracetam (Keppra) PHA 02/03/17 In Process 21:00 Gabapentin (Neurontin) PHA 02/03/17 In Process 21:00 Peg 3350 (Miralax) PHA 02/03/17 In Process 21:00 Senna + Docusate PHA 02/03/17 In Process (Senna Plus) 21:00 Tizanidine (Zanaflex) PHA 02/03/17 In Process 21:00 Zinc Oxide/Cod Liver PHA 02/03/17 In Process Oil (Desitin) 21:00 Lorazepam (Ativan) PHA 02/03/17 In Process 18:30 Lab Results Laboratory Tests Test 02/03/17 17:18 White Blood Count 11.6T/MM3 Red Blood Count 4.32M/MM3 Hemoglobin 12.4GM/DL Hematocrit 37.2% Mean Corpuscular Volume 86.1UM3 Mean Corpuscular Hemoglobin 28.7UUG Mean Corpuscular Hemoglobin Concent 33.3GM/DL RDW Standard Deviation 37.6FL Platelet Count 330T/MM3 Mean Platelet Volume 10.1UM3 Immature Granulocyte % (Auto) % Neutrophils (%) (Auto) % Lymphocytes (%) (Auto) % Monocytes (%) (Auto) % Eosinophils (%) (Auto) % Basophils (%) (Auto) % Absolute Immature Granulocyte (auto T/MM3 Absolute Neutrophils (auto) T/MM3 Absolute Lymphocytes (auto) T/MM3 Absolute Monocytes (auto) T/MM3 Absolute Eosinophils (auto) T/MM3 Absolute Basophils (auto) T/MM3 Neutrophils % (Manual) 64.0% Lymphocytes % (Manual) 23.0% Monocytes % (Manual) 10.0% Eosinophils % (Manual) 2.0% Basophils % (Manual) 1.0% Absolute Neutrophils (Manual) 7.4T/MM3 Lymphocytes # (Manual) 2.7T/MM3 Monocytes # (Manual) 1.2T/MM3 Eosinophils # (Manual) 0.2T/MM3 Basophils # (Manual) 0.1T/MM3 Red Cell Morphology Comment Normal Turbidity < 20 Sodium Level 142MEQ/L Potassium Level 4.0MEQ/L Chloride Level 101MEQ/L Carbon Dioxide Level 25MEQ/L Anion Gap 16MEQ/L Blood Urea Nitrogen 12.0MG/DL Creatinine 0.4MG/DL Glomerular Filtration Rate Calc 184 BUN/Creatinine Ratio 30RATIO Glucose Level 112MG/DL Calculated Osmolality 274MOSM/KG Calcium Level 8.4MG/DL Total Bilirubin 0.30MG/DL Icterus Index < 2 Aspartate Amino Transf (AST/SGOT) 23U/L Alanine Aminotransferase (ALT/SGPT) 36U/L Alkaline Phosphatase 134U/L Total Protein 7.1G/DL Albumin 3.8G/DL Globulin 3.3G/DL Albumin/Globulin Ratio 1.2RATIO Lipase 110U/L Plasma Lactate 1.5MMOL/L Procalcitonin 0.05NG/ML Chemistry Specimen Hemolysis < 15 Progress Progress WBC is 11.6 without left shift. CMP is normal aside from elevated alk phos of 134. Lipase, lactate, and procalcitonin today are normal. Did speak with Jess Kaur APRN with the hospitalist service and she has been admitted to their service with consult to Dr Chaidez. MOOSE TOMAS APRN February 03, 2017 17:07
[2017-02-03 17:26] LABS: HCT - HEMATOCRIT 37.2 % (36-46); HGB - HEMOGLOBIN 12.4 GM/DL (12-16); MEAN CORPUSCULAR HGB 28.7 UUG (26-34); MEAN CORPUSCULAR HGB CONC(MCHC 33.3 GM/DL (31-37); MEAN CORPUSCULAR VOLUME 86.1 UM3 (80-100); MEAN PLATELET VOLUME 10.1 UM3 (9.4-12.4); RED BLOOD COUNT 4.32 M/MM3 (4.00-5.20); WBC - WHITE BLOOD COUNT 11.6 T/MM3 (4.5-11.0)
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
[2017-02-03 17:33] LABS: ALBUMIN 3.8 G/DL (3.5-5.0); ALBUMIN/GLOBULIN RATIO 1.2 RATIO (1.1-2.2); ALKALINE PHOSPHATASE 134 U/L (38-126); ALT (SGPT) 36 U/L (9-52); ANION GAP 16 MEQ/L (5-15); AST (SGOT) 23 U/L (14-36); BUN/CREATININE RATIO 30 RATIO (6-26); CALCIUM 8.4 MG/DL (8.4-10.2); CHLORIDE 101 MEQ/L (98-107); CO2 - CARBON DIOXIDE 25 MEQ/L (22-30); CREATININE 0.4 MG/DL (0.7-1.2); GLOMERULAR FILTRATION RATE 184; GLUCOSE 112 MG/DL (65-110); LACTATE - LACTIC ACID 1.5 MMOL/L (0.6-2.2); LIPASE 110 U/L (23-300); SODIUM 142 MEQ/L (134-144); TOTAL PROTEIN 7.1 G/DL (6.3-8.2)
[2017-02-03 17:46] LABS: BASOPHILS # (MANUAL) 0.1 T/MM3 (0-0.2); EOSINOPHILS # (MANUAL) 0.2 T/MM3 (0-0.5); LYMPHOCYTES # (MANUAL) 2.7 T/MM3 (1-4.8); MONOCYTES # (MANUAL) 1.2 T/MM3 (0-0.8); NEUTROPHILS #(MANUAL)-ABSOLUTE 7.4 T/MM3 (1.8-7.7); TOTAL CELLS COUNTED 100 %
[2017-02-03 17:48] VITALS: Ht 147.3 cm; Wt 38.2 kg
[2017-02-03] MEDS ORDERED: ONDANSETRON 4mg/2ml INJECTION IV PRN (18:00)
[2017-02-03] MEDS: NORMAL SALINE 1,000 ML IV SCH (18:13)
[2017-02-03] MEDS: ERTAPENEM 1 G in NORMAL SALINE 100 ML IV SCH (18:19)
[2017-02-03 18:27] VITALS: BP 123/69; PULSE 88; RESP 18; TEMP 98.4; O2SAT 98
[2017-02-03 20:00] VITALS: PULSE 65
[2017-02-03] MEDS: POLYETHYL.GLYCOL 3350 PACKET 17gm PO SCH (21:00)
[2017-02-03] MEDS: SENNA + DOCUSATE TAB PO SCH (21:00)
[2017-02-03] MEDS: LEVETIRACETAM 500 MG TABLET PO SCH (22:34)
[2017-02-03] MEDS: ZINC OXIDE 40% (Diaper Rash Oint) 56gm TUBE TOP SCH (22:34)
[2017-02-03] MEDS: GABAPENTIN 600 MG TABLET PO SCH (22:35)
[2017-02-03] MEDS: TIZANIDINE 4 MG TABLET PO SCH (22:35)
[2017-02-04] VITALS (43 sets, daily range): BP systolic 90–165; BP diastolic 51–109; PULSE 68–110; RESP 14–32; TEMP 97.7–99.9; O2SAT 88–100
[2017-02-04] MEDS: MORPHINE SULFATE 2 MG SYRINGE IV PRN (03:42)
[2017-02-04 04:01] LABS: BASOPHILS % (AUTO) 0.2 % (0-2); EOSINOPHILS # (AUTO) 0.3 T/MM3 (0-0.5); EOSINOPHILS % (AUTO) 3.1 % (0-4); HCT - HEMATOCRIT 33.4 % (36-46); IMMATURE GRANULOCYTE # (AUTO) 0.03 T/MM3 (0.00-0.03); IMMATURE GRANULOCYTE % (AUTO) 0.3 % (0.0-0.5); LYMPHOCYTES # (AUTO) 2.1 T/MM3 (1-4.8); LYMPHOCYTES % (AUTO) 23.4 % (23-45); MEAN CORPUSCULAR HGB 28.6 UUG (26-34); MEAN CORPUSCULAR HGB CONC(MCHC 32.9 GM/DL (31-37); MEAN CORPUSCULAR VOLUME 86.8 UM3 (80-100); MEAN PLATELET VOLUME 10.1 UM3 (9.4-12.4); MONOCYTES # (AUTO) 0.9 T/MM3 (0-0.8); MONOCYTES % (AUTO) 10.1 % (0-9.0); NEUTROPHILS #(AUTO)-ABSOLUTE 5.6 T/MM3 (1.8-7.7); NEUTROPHILS % (AUTO) 62.9 % (33-66); RED BLOOD COUNT 3.85 M/MM3 (4.00-5.20); WBC - WHITE BLOOD COUNT 8.9 T/MM3 (4.5-11.0)
[2017-02-04 04:09] LABS: ANION GAP 9 MEQ/L (5-15); BUN/CREATININE RATIO 25 RATIO (6-26); CALCIUM 8.3 MG/DL (8.4-10.2); CHLORIDE 105 MEQ/L (98-107); CO2 - CARBON DIOXIDE 26 MEQ/L (22-30); CREATININE 0.4 MG/DL (0.7-1.2); GLOMERULAR FILTRATION RATE 184; GLUCOSE 99 MG/DL (65-110); POTASSIUM 4.2 MEQ/L (3.6-5); SODIUM 140 MEQ/L (134-144)
[2017-02-04] MEDS: LORAZEPAM 2 MG/ML INJECTION IV PRN (05:59)
[2017-02-04] MEDS: NORMAL SALINE 1,000 ML IV SCH ×2 (06:05→19:20)
[2017-02-04] MEDS: POLYETHYL.GLYCOL 3350 PACKET 17gm PO SCH ×2 (09:00→21:00)
[2017-02-04] MEDS: LEVETIRACETAM 500 MG TABLET PO SCH ×2 (09:00→22:06)
[2017-02-04] MEDS: SENNA + DOCUSATE TAB PO SCH ×2 (09:00→21:00)
[2017-02-04] MEDS: TIZANIDINE 4 MG TABLET PO SCH ×4 (09:00→22:06)
[2017-02-04] MEDS: ZINC OXIDE 40% (Diaper Rash Oint) 56gm TUBE TOP SCH ×4 (09:00→22:09)
[2017-02-04] MEDS: GABAPENTIN 600 MG TABLET PO SCH ×3 (09:00→22:06)
[2017-02-04] MEDS: ERTAPENEM 1 G in NORMAL SALINE 100 ML IV SCH (09:41)
--- NOTE | 2017-02-04 09:55 | CONSPD ---
Consultation Info Date DATE: 02/04/17 TIME: 09:52 Date of Consultation: February 04, 2017 Attending Physician: Ramona Reason for Consultation: Cholelithiasis HPI - Adult Date DATE: 02/04/17 TIME: 09:52 General Chief Complaint: acute cholecystitis History of Present Illness Per Dr. Chaidez Past Medical History Past Medical History Cerebral palsy. Quadriplegia. Mental retardation. Seizure disorder. Cardiomegaly. Complete immobility. History of spinal fusion. Chronic constipation Surgical History Patient's Surgical History: Spinal fusion t2-spine to sacrum History of cerebral line placement, However, mother denies that this is a BAKERY WORKER shunt Current Medications Home Meds Active Scripts Erythromycin Base (Erythromycin) 1 Gm Oint...g., 1 INCH OP QID for 5 Days Prov:JANUARY,CECILIO M DO 01/22/17 Reported Medications Naproxen Sodium (Midol) 220 Mg Tablet, 220 MG PO BIDWM Y for PAIN 01/12/17 Menthol/Zinc Oxide (Calmoseptine Ointment) 71 Gm Oint...g., 1 APPLIC TOP BID Y for PRN ORDERS Apply 2 times a day. 01/12/17 Hydrocortisone (Proctocream-Hc) 30 Gm Cream.appl, 1 APPLIC TOP BID Y for PRN ORDERS 01/12/17 Triamcinolone (Triamcinolone Acetonide) 15 Applic/15 G Cr, 1 APPLIC TOP BID 01/12/17 Zinc Oxide (Desitin) 57 Gm Cream..g., 1 APPLIC TOP QID 01/12/17 [Nyst/Sedit/Mupir] No Conflict Check, 1 APPLIC TOP BID Y for PRN ORDERS 01/12/17 Pseudoephedrine HCl (Sudogest) 30 Mg Tablet, 30 MG PO BID Y for COUGH/CONGESTION 11/19/15 Diphenhydramine HCl (Diphenhydramine HCl) 25 Mg Tablet, 25-50 MG PO Q4H Y for ALLERY SYMPTOMS 11/19/15 Diazepam (Diazepam) 10 Mg Tablet, 10 MG PO HS prior to dental appts 11/19/15 Ibuprofen (Ibuprofen) 200 Mg Capsule, 2 CAP PO Q4H Y for HEADACHE, CAP 07/09/15 Guaifenesin/Dextromethorphan (Tussin Dm Clear Liquid) 118 Ml Syrup, 10 ML PO Q4HPRN Y for cough 07/09/15 Magnesium Hydroxide (Milk of Magnesia) 400 Mg/5 Ml Oral.susp, 30 ML PO DAILY Y for CONSTIPATION 07/09/15 Mag Hydrox/Al Hydrox/Simeth (Antacid Anti-Gas Liquid) 355 Ml Oral.susp, 20 ML PO Q4HPRN 07/09/15 Na Phos,M-B/Na Phos,Di-Ba (Enema Ready To Use) 133 Ml Enema, 1 ENEMA RECTALLY PRN 07/09/15 Calcium Carbonate (Calcium Carbonate) 500 Mg Tablet, 2 TAB PO Q4H Y for INDIGESTION 07/08/15 Bisacodyl (Biscolax) 10 Mg Supp.rect, 1 SUPP RECTALLY PRN, SUPP 07/08/15 Loperamide HCl (Loperamide) 2 Mg Tablet, 4 MG PO PRN Y for CONSTIPATION 07/08/15 Acetaminophen (Acetaminophen Extra Strength) 500 Mg Tablet, 2 TAB PO Q4HR Y for PAIN 07/08/15 Polyethylene Glycol 3350 (Polyethylene Glycol 3350) 255 Gm Powder, 17 G PO BID 07/08/15 Sennosides/Docusate Sodium (Senna-Docusate Sodium Tablet) 1 Each Tablet, 2 TAB PO BID 07/08/15 Sennosides (Senna Lax) 8.6 Mg Tablet, 2 TAB PO DAILY Y for CONSTIPATION 03/04/15 Zolpidem Tartrate (Zolpidem Tartrate) 5 Mg Tablet, 5 MG PO HS Y for sleeplessness 03/04/15 Tizanidine HCl (Tizanidine HCl) 4 Mg Tablet, 4 MG PO QID 02/07/15 Gabapentin (Gabapentin) 300 Mg Capsule, 600 MG PO TID 09/06/13 Acetaminophen (Acetaminophen) 325 Mg Tablet, 2 TAB PO Q4H Y for PAIN 05/12/12 Levetiracetam (Levetiracetam) 750 Mg Tab.er.24h, 750 MG PO BID 05/12/12 Escitalopram Oxalate (Escitalopram Oxalate) 20 Mg Tablet, 20 MG PO DAILY 05/12/12 Allergies: Coded Allergies: milk (Verified Allergy, Intermediate, Makes lots of phlegm, more coughing. , 02/03/17) Family History Family History: Mother-arthritis Other family history positive for diabetes Social History Smoking Status: Never smoker Substance Use Type: does not use Alcohol Intake: none Household Members: other ([employer]) Advance Directives: Yes DNR, Yes DPOA for Healthcare Only (mother) GS Review of Systems 10-point Review of Systems unobtainable (due to severe MR and cerebral palsy) GS Physical Exam Vital Signs Date Time Temp Pulse Resp B/P Pulse Ox O2 Delivery O2 Flow Rate FiO2 02/04/17 08:04 98.3 72 18 105/65 90 Room Air Height (Feet): 4 Height (Inches): 10.00 Weight (Kilograms): 34.900 BMI 23.0 Laboratory Laboratory Tests 02/03/17 17:18 02/04/17 03:50 Laboratory Tests 02/03/17 17:18 02/04/17 03:50 JULIA GLASGOW [employer] DEVELOPER February 04, 2017 09:55
[2017-02-04] MEDS ORDERED: LEVETIRACETAM 750 MG in NORMAL SALINE 100 ML IV ONE (11:00)
--- NOTE | 2017-02-04 11:01 | PNPDOC ---
KETTY ÁLVAREZ V CUT OFF WORKER 02/04/17 1055: Subjective Date DATE: 02/04/17 TIME: 10:51 Subjective Mary Lou is seen this morning while resting in bed with mother at bedside. She is alert and makes groans and sounds however is non-verbal with words. She does not appear to be in any acute distress. Vitals sings are stable and she is breathing on room air without distress. Temperature max overnight 99.9. WBC decreased to 8.9. Objective Vital Signs Vital signs Vital Signs Date Time Temp Pulse Resp B/P Pulse Ox O2 Delivery O2 Flow Rate FiO2 02/04/17 09:30 72 18 02/04/17 08:04 98.3 105/65 90 Room Air Height (Feet): 4 Height (Inches): 10.00 Weight (Kilograms): 34.900 General General Appearance: Alert, Cooperative, No Acute Distress Eyes (Brief) Eyes: FOUND: EOMI ENMT (Brief) ENMT: FOUND: mucosa moist, normal dentition, NOT FOUND: pharnyx erythema Neck (Brief) Neck: FOUND: midline, NOT FOUND: adenopathy, carotid bruits, tracheal deviation Respiratory (Brief) Respiratory: FOUND: clear all gaxiola, equal bilaterally, NOT FOUND: wheezes Cardiovascular (Brief) Cardiac: FOUND: regular rate, regular rhythm, NOT FOUND: murmur, pedal edema Capillary Refill: <2 sec Abdomen (Brief) Abdominal: FOUND: BS normo active x4, soft, NOT FOUND: distended, tender Extremities (Brief) Extremity : Side: Bilateral Extremity: leg Extremity Finding: FOUND: other (thin, contractures) Lymphatic (Brief) Lymphatic: NOT FOUND: adenopathy Musculoskeletal (Brief) Musculoskeletal: NOT FOUND: tenderness Integumentary (Brief) Integumentary: FOUND: dry, pink, warm Neurologic (Brief) Neurological: FOUND: cranial 2-12 intact, motor (baseline) Psychiatric (Brief) Psychiatric: FOUND: alert, attentive, normal affect, oriented Laboratory Laboratory Laboratory Tests 02/03/17 17:18 02/04/17 03:50 Laboratory Tests 02/03/17 17:18 02/04/17 03:50 Microbiology Microbiology Microbiology Date/Time Source Procedure Growth Status 02/03/17 17:18 Peripheral/Iv Start Blood Culture - Preliminary CULTURE INITIATED - RESULTS PENDING Resulted 02/03/17 17:18 Peripheral/Iv Start Blood Culture - Preliminary CULTURE INITIATED - RESULTS PENDING Resulted Assessment & Plan Problems: (1) Acute cholecystitis Status: Acute (2) Dysphagia Status: Chronic Assessment & Plan: Right dysphasia, on pured diet (3) Cerebral palsy Status: Chronic (4) Quadriplegia Status: Chronic (5) Mental retardation Status: Chronic (6) Seizure disorder Status: Chronic (7) Cardiomegaly Status: Chronic (8) 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 Leukocytosis improved to 8.9. Continues on IV Invanz for antimicrobial coverage. She is currently NPO for possible surgical intervention later today. Will give a one-time dose of IV Keppra 750 milligrams for seizure prophylaxis. Will likely be able to resume oral medications this evening. Morphine as needed for pain control Will monitor airway and dysphagic post-op as patient does have chronic dysphagia and is at high risk for aspiration. Will also need to monitor carefully for postoperative bowel motivation as patient is prone to being constipated. Follow routine labs. Code Status Do Not Resuscitate Hospital Course Summary Disclaimer The hospital course summary below is not to be considered part of the above Progress Note. Hospital Course Summary 02/03 Admit patient to outpatient observation under the care of Dr. Greene for acute cholecystitis. Laboratory studies are currently pending . CBC, CMP, lipase, blood cultures, venous lactate, pro calcitonin. Will work patient up for acute sepsis. Consultation placed to Dr. Chaidez for further surgical evaluation and treatment. Will start patient on normal saline at 80 ML per hour for gentle hydration She may have Pureed Diet this evening, however, will make patient nothing by mouth after midnight for possible surgical intervention tomorrow. A consider a postoperative speech therapy evaluation given chronic dysphagia. Need to monitor patient carefully postoperatively for ileus or obstruction as patient does have a history of chronic constipation SCDs to bilateral lower extremity for DVT prophylaxis Once home medications are reconciled. These will need to be evaluated and ordered as needed. Again did speak with patient's mother, DPOA regarding advanced directives and she does verify the patient is a do not resuscitate. Will discuss further orders and plan of care with attending, Dr. Greene Time of discharge medical care will return to primary care provider, Dr. Justice 02/04/17 Appears medical stable this morning Appreciate surgical consultation by Dr Chaidez. Leukocytosis improved to 8.9. Continues on IV Invanz for antimicrobial coverage. She is currently NPO for possible surgical intervention later today. Will give a one-time dose of IV Keppra 750 milligrams for seizure prophylaxis. Will likely be able to resume oral medications this evening. Morphine as needed for pain control Will monitor airway and dysphagic post-op as patient does have chronic dysphagia and is at high risk for aspiration. Will also need to monitor carefully for postoperative bowel motivation as patient is prone to being constipated. Follow routine labs. MIGUE GREENE MD 02/04/171944: Assessment & Plan Plan/Intensity of Service Have independently interviewed and examined pt. Chart reviewed. Case discussed with my CUT OFF WORKER. Care plan developed with my supervision; agree with above. Recovering from Sx this evening. Pain varies-had 15mg Toradol about 2 hours ago. Nursing in post op wondering about a repeat-pt breathing slightly shallow with the Dilaudid she was given. Mother at bedside. Lungs: decreased, but clear CV: regular Ab: soft, BS decreased EXT: thin, no edema Plan: Repeat Toradol x1. Continue with supportive post op care. Control pain and nausea. Monitor for post op ileus or aspiration. Monitor lab. DVT Prophylaxis: SCD'S KETTY ÁLVAREZ Isidra OSORIO February 04, 2017 10:55 MIGUE GREENE MD February 04, 2017 19:45
--- NOTE | 2017-02-04 15:16 | ANESPREOP ---
Anesthesia Record Date and Time DATE: 02/04/17 TIME: 15:11 Pre-Op Diagnosis Choleycystitis Proposed Surgical Procedure Robotic Rosie NPO since: [place] Allergies: Coded Allergies: milk (Verified Allergy, Intermediate, Makes lots of phlegm, more coughing. , 02/03/17) Ht/Wt/BMI Height: 4 ' 10.00 " Weight: 34.900 kg BMI: 23.0 kg/m2 Vital Signs Date Time Temp Pulse Resp B/P Pulse Ox O2 Delivery O2 Flow Rate FiO2 02/04/17 09:30 72 18 02/04/17 08:04 98.3 105/65 90 Room Air Medications Inpatient Medications Current Medications Medications (Trade) Dose Ordered Sig/Maribel Start Time Stop Time Status Last Admin Dose Admin Sodium Chloride 1,000 ml @ 80 mls/hr [id number] 02/03/17 17:30 02/04/17 06:05 80 MLS/HR Ertapenem/Sodium Chloride (Invanz/NS) 100 ml @ 200 mls/hr DAILY 02/03/17 18:00 02/04/17 09:41 200 MLS/HR Ondansetron HCl (Zofran) 4 mg Q6H PRN 02/03/17 18:00 Morphine Sulfate (Morphine) 1-2mg Q2H PRN 02/03/17 18:00 02/04/17 03:42 1 MG Levetiracetam (Keppra) 750 mg BID 02/03/17 21:00 02/03/17 22:34 750 MG Gabapentin (Neurontin) 600 mg TID 02/03/17 21:00 02/03/17 22:35 600 MG Polyethylene Glycol (Miralax) 17 g BID 02/03/17 21:00 Senna/Docusate Sodium (Senna Plus) 2 tab BID 02/03/17 21:00 Tizanidine HCl (Zanaflex) 4 mg QID 02/03/17 21:00 02/03/17 22:35 4 MG Zinc Oxide (Desitin) 1 applic QID 02/03/17 21:00 02/03/17 22:34 1 APPLIC Lorazepam (Ativan) 0.5 mg Q4H PRN 02/03/17 18:30 02/04/17 05:59 0.5 MG Acetaminophen (Acetaminophen) 325 Mg Tablet, 2 TAB PO Q4H PRN for PAIN, ( Reported) Acetaminophen (Acetaminophen Extra Strength) 500 Mg Tablet, 2 TAB PO Q4HR PRN for PAIN, (Reported) Bisacodyl (Biscolax) 10 Mg Supp.rect, 1 SUPP RECTALLY PRN, (Reported) Calcium Carbonate (Calcium Carbonate) 500 Mg Tablet, 2 TAB PO Q4H PRN for INDIGESTION, (Reported) Diazepam (Diazepam) 10 Mg Tablet, 10 MG PO HS, (Reported) prior to dental appts Diphenhydramine HCl (Diphenhydramine HCl) 25 Mg Tablet, 25-50 MG PO Q4H PRN for ALLERY SYMPTOMS, (Reported) Erythromycin Base (Erythromycin) 1 Gm Oint...g., 1 INCH OP QID Escitalopram Oxalate (Escitalopram Oxalate) 20 Mg Tablet, 20 MG PO DAILY, ( Reported) Gabapentin (Gabapentin) 300 Mg Capsule, 600 MG PO TID, (Reported) Guaifenesin/Dextromethorphan (Tussin Dm Clear Liquid) 118 Ml Syrup, 10 ML PO Q4HPRN PRN for cough, (Reported) Hydrocortisone (Proctocream-Hc) 30 Gm Cream.appl, 1 APPLIC TOP BID PRN for PRN ORDERS, (Reported) Ibuprofen (Ibuprofen) 200 Mg Capsule, 2 CAP PO Q4H PRN for HEADACHE, (Reported) Levetiracetam (Levetiracetam) 750 Mg Tab.er.24h, 750 MG PO BID, (Reported) Loperamide HCl (Loperamide) 2 Mg Tablet, 4 MG PO PRN PRN for CONSTIPATION, ( Reported) Mag Hydrox/Al Hydrox/Simeth (Antacid Anti-Gas Liquid) 355 Ml Oral.susp, 20 ML PO Q4HPRN, (Reported) Magnesium Hydroxide (Milk of Magnesia) 400 Mg/5 Ml Oral.susp, 30 ML PO DAILY PRN for CONSTIPATION, (Reported) Menthol/Zinc Oxide (Calmoseptine Ointment) 71 Gm Oint...g., 1 APPLIC TOP BID PRN for PRN ORDERS, (Reported) Apply 2 times a day. Na Phos,M-B/Na Phos,Di-Ba (Enema Ready To Use) 133 Ml Enema, 1 ENEMA RECTALLY PRN, (Reported) Naproxen Sodium (Midol) 220 Mg Tablet, 220 MG PO BIDWM PRN for PAIN, (Reported) Polyethylene Glycol 3350 (Polyethylene Glycol 3350) 255 Gm Powder, 17 G PO BID, (Reported) Pseudoephedrine HCl (Sudogest) 30 Mg Tablet, 30 MG PO BID PRN for COUGH/ CONGESTION, (Reported) Sennosides (Senna Lax) 8.6 Mg Tablet, 2 TAB PO DAILY PRN for CONSTIPATION, ( Reported) Sennosides/Docusate Sodium (Senna-Docusate Sodium Tablet) 1 Each Tablet, 2 TAB PO BID, (Reported) Tizanidine HCl (Tizanidine HCl) 4 Mg Tablet, 4 MG PO QID, (Reported) Triamcinolone (Triamcinolone Acetonide) 15 Applic/15 G Cr, 1 APPLIC TOP BID, ( Reported) Zinc Oxide (Desitin) 57 Gm Cream..g., 1 APPLIC TOP QID, (Reported) Zolpidem Tartrate (Zolpidem Tartrate) 5 Mg Tablet, 5 MG PO HS PRN for sleeplessness, (Reported) [Nyst/Sedit/Mupir] , 1 APPLIC TOP BID PRN for PRN ORDERS, (Reported) Currently on Beta Yanet: No Medical/Surgical History Anesthesia PMH: Reports: Blood Transfusion Reac, CVA/Stroke/TIA (AT ), Seizures, Denies: *Hypertension, *[place], Asthma, CHF, COPD, Cancer, Pacemaker Smoking Status: Never smoker Has pt. smoked today?: No Use Chewing Tobacco?: No Second Hand Exposure: No Substance Use Type: does not use Alcohol Intake: none Past Surgical History Orthopedic Surgeries: Yes - HIP PINNING TWICE, ABDUCTOR RELEASES X3, SPINAL FUSION Abdominal Surgeries: No Genitourinary Surgeries: No Cardiac Surgeries: No Endocrine Surgeries: No Reproductive Surgeries: No Neurological Surgeries: No Ear Surgeries: No Nose Surgeries: No Throat Surgeries: No Other Surgeries: No Anesthesia Adverse Reactions: FOUND other (halothane caused heart rate to decrease) Family Hx of Anesthesia Advers: none Hx of Motion Sickness: No Pertinent Findings Laboratory Tests 02/04/17 03:50 EKG Rhythm: Sinus Rhythm Physical Exam Respiratory: Bilat breath sounds equal, Lungs clear Cardiovascular: FOUND Regular rate, rhythm, FOUND No murmur Airway Assessment TMD: 3 Fingerbreadths Overall Assessment: May Be Diff Mask Vent., May Be Diff Intubation ASA: 3 Plan Anesthesia Plan: GETA Discussion Discussed risks/options/alternatives of anesthesia and questions answered. Patient consents. Nursing pain assessment noted. Present: Parent Attestation Statement Prior to the delivery of any anesthetic medication, I examined the patient, developed the plan, obtained the patient's consent and discussed the risk and benefits of the procedure with the patient/guardian. NELA PATTERSON CRNA February 04, 2017 15:16
[2017-02-04] MEDS ORDERED: ROCURONIUM 50mg/5ml INJECTION IV ONE (15:22)
[2017-02-04] MEDS ORDERED: FENTANYL 100mcg/2ml INJECTION ONE ×2 (15:22→16:45)
[2017-02-04] MEDS ORDERED: PROPOFOL 200mg 20 ML IV ONE (15:22)
[2017-02-04] MEDS ORDERED: BUPIVACAINE 0.25%/EPI 1:200,000 30ml SDV ONE (15:32)
[2017-02-04] MEDS ORDERED: SALINE FLUSH 10ml SYRINGE ONE (15:51)
[2017-02-04] MEDS ORDERED: SUGAMMADEX 200 MG/2 ML INJECTION IV ONE (17:12)
[2017-02-04] MEDS ORDERED: ONDANSETRON 4mg/2ml INJECTION ONE (17:12)
--- NOTE | 2017-02-04 17:28 | GSPOSTPN ---
Procedure Procedure Date: February 04, 2017 Surgeon: Dm Assisting Surgeon: Иван Aly Anesthesia: Local, GETA ASA: 3 Procedure Robotic assisted laparoscopic cholecystectomy with FireFly imaging GS Diagnosis Postop Diagnosis Symptomatic cholelithiasis Complications Complications Estimated Blood Loss See Anesthesia Record. Vital Signs See Anesthesia and PACU record. JULIA ALY ZOO DIRECTOR February 04, 2017 17:28
[2017-02-04] MEDS: HYDROMORPHONE 2mg/ml INJECTION IV PRN ×4 (17:44→19:24)
[2017-02-04] MEDS ORDERED: ONDANSETRON 4mg/2ml INJECTION IV PRN (17:45)
[2017-02-04] MEDS ORDERED: HYDROMORPHONE 2mg/ml INJECTION IV PRN (17:45)
[2017-02-04] MEDS ORDERED: KETOROLAC 30mg/ml INJECTION IV ONE ×4 (18:00→19:45)
--- NOTE | 2017-02-04 19:32 | CONSF ---
DATE OF CONSULTATION 02/04/2017 FINDINGS Mrs. Young is a 31-year-old mentally handicapped female whom I was asked to see this evening as a result of her history for reported pain and the finding of probable acute cholecystitis upon radiographic evaluation. The patient's mother was present earlier this morning when I did go to examine the patient. The patient's mother informs me that staff has been notifying her that Mary Lou has been intermittently "crying out" and has appeared to be in a component of pain. As a result of these increasing episodes of reported pain, the patient was brought into our facility for further evaluation. Upon entering the hospital room this morning, Mary Lou did not appear to be any acute distress. Mary Lou is nonverbal as a result of being severely mentally handicapped. PAST MEDICAL HISTORY Performed by my nurse practitioner, Иван Aly. PAST SURGICAL HISTORY Performed by my nurse practitioner, Иван Aly. MEDICATIONS Performed by my nurse practitioner, Иван Aly. ALLERGIES Performed by my nurse practitioner, Иван Aly. SOCIAL HISTORY Performed by my nurse practitioner, Иавн Aly. FAMILY HISTORY Performed by my nurse practitioner, Иван Aly. REVIEW OF SYSTEMS Performed by my nurse practitioner, Иван Aly. PHYSICAL EXAMINATION GENERAL: Mary Lou is a 31-year-old female who did not appear to be in acute distress earlier today. VITALS: Temperature 97.9. Pulse 76. Respirations 17. Blood pressure 132/80. SaO2 91% on room air. HEENT: Normocephalic. Pupils are equally round and react to light and accommodation. NECK: Supple without lymphadenopathy. CHEST: Clear to auscultation bilaterally. HEART: Regular rate and rhythm. Normal S1, S2, without gallops, murmurs or clicks. ABDOMEN: Visualization of the abdomen revealed it to be quite scaphoid in its appearance. Palpation of the abdomen did not seem to elicit any pain to the patient although secondary to the fact that she is severely mentally handicapped it was difficult to really ascertain whether or not the patient was in pain upon palpation. There did not appear, however, to be a component of guarding or rebound upon palpation. EXTREMITIES: Patient did have several contractures involving her extremities. No evidence of clubbing or cyanosis or edema. NEURO: Cranial nerves II-XII grossly intact. Patient without focal, motor, or sensory deficits. Remaining normal tenriism tube. LABORATORY/RADIOLOGIC EVALUATION The patient had a CBC today and her white count was 8.9. Hemoglobin 11.0. CMP was obtained upon admission and found to be without marked abnormalities. Alkaline phosphatase was slightly elevated at 134. The patient had a gallbladder ultrasound obtained yesterday. Gallbladder ultrasound revealed cholelithiasis and a component of gallbladder wall thickening compatible with acute cholecystitis. ASSESSMENT 31-year-old female with possible/probable acute cholecystitis. PLAN I informed the patient's mother that I felt that we had a few options available to us. One option would be to be more conservative in nature and treat her with broad-spectrum intravenous antibiotics and follow her somewhat from a clinical standpoint to see if this would result in improvement of her reported pain and discomfort. Given the fact the patient is nonverbal this is somewhat difficult for she is unable to tell us whether or not she is having pain or is feeling better. Nonoperative intervention, however, was given as an option to the patient's mother. The other option would be is to go ahead and proceed with robotic assisted laparoscopic cholecystectomy given the fact the patient apparently has been displaying evidence for abdominal pain over the course of the last couple months per her report and the fact that sonographically she was found to have evidence for cholelithiasis and gallbladder wall thickening. I did discuss with the mother what a laparoscopic cholecystectomy would entail and its associated risks which included, but was not exclusive of, bleeding, infection, potential conversion to open procedure, potential injury to adjacent structures especially the common bile duct. The patient's mother understood and stated that she would prefer to proceed with surgical intervention. Will follow the patient's DPOAs request and proceed with cholecystectomy. YSABEL
--- NOTE | 2017-02-04 22:06 | OPNOTEF ---
DATE OF SERVICE 02/04/2017 SURGEON Devonte Chaidez MD [employer] COUNTERPERSON Иван Aly APRN PREOPERATIVE DIAGNOSIS Acute cholecystitis. POSTOPERATIVE DIAGNOSIS Acute cholecystitis. PROCEDURE Robotic assisted laparoscopic cholecystectomy with use of Firefly biliary imaging. ANESTHESIA General endotracheal EBL AND FLUIDS Please see chart. BRIEF HISTORY/INDICATIONS Ms. Young is a 31-year-old mentally handicapped woman whom I was asked to see earlier this morning as a result of her reported history of pain over the course of last 2-3 weeks in conjunction with the finding of cholelithiasis and a component of gallbladder wall thickening suggestive of acute cholecystitis. Options were given to the patient's mother who is the patient's DPOA, of nonoperative intervention with use of a broad-spectrum antibiotics and serial abdominal examinations versus that of surgical intervention/cholecystectomy. Mother wished to proceed with surgical intervention. For completeness please refer to notes included in the patient's chart. FINDINGS Upon laparoscopy, the patient was found to have some thickening of the gallbladder wall. There was some omentum adherent to the gallbladder indicative of prior inflammation. The patient was found have several stones within the neck/infundibular portion of the gallbladder indicative for the etiology for biliary colic/acute cholecystitis. Small bowel, omentum, peritoneal surfaces which were visualized were within normal limits. The colon was found to be somewhat chronically dilated in its appearance, especially the sigmoid colon region. Otherwise no abnormalities were noted upon exploration of the abdomen via the laparoscope. DESCRIPTION OF PROCEDURE After informed consent was obtained, the patient was brought to the operative suite, placed on the table in supine fashion. Abdomen was then prepped and draped in sterile fashion. Formal time-out was then completed. 0.25% Marcaine with epinephrine was injected just beneath the level of the umbilicus. A 2 cm curved incision was then made through the area of analgesia. Dissection was carried down to the deep subcuticular tissues and underlying fascia. Fascia was then grasped with two Alejandro clamps and retracted anteriorly. A 1 cm incision was made between the two Alejandro clamps. Hemostat was then introduced into the fascial incision and gently spread. A U-stitch was then placed with 0 Vicryl. A 12 mm Ioana port was then placed in the peritoneal cavity and pneumoperitoneum was established to a patient pressure of 15 mmHg utilizing carbon dioxide. Next, two 8 mm da Litzy ports were then placed within the left upper quadrant and right lower quadrant of the abdominal wall. An additional 5 mm port was then placed along the right lateral abdominal wall. Each port site was preinjected with 0.25% Marcaine with epinephrine and placed under direct visualization. Next the patient was placed in reverse Trendelenburg position and rotated towards her left. One could see that the sigmoid colon was somewhat dilated as discussed above. Utilizing a handheld laparoscopic grasper, the sigmoid colon was reflected back to the patient's left lower quadrant. The colon itself did not show any evidence for volvulus or vascular compromise. Additional findings upon exploration of the abdomen are as above. Next, the robot was then docked overlying the patient's right shoulder at a 45 degree angle. I had my activities assistant then grasp the fundal portion of the gallbladder from the assist port along the right lateral abdominal wall and retract the gallbladder in a cephalad and lateral fashion. Additional grasping Pean was then placed upon the infundibulum of the gallbladder and retracted in a lateral and slightly caudad fashion so as to provide exposure of the triangle of Calot. There was some omentum adherent to the gallbladder indicative of prior inflammation. The omentum was dissected away from the gallbladder. Next, dissection was then began high upon the infundibulum of the gallbladder with the use of electrocautery. At no point in time was electrocautery performed adjacent to a hollow viscus such as transverse colon, duodenum or stomach. Dissection was continued until the only remaining structures coming forth from the infundibulum of the gallbladder were that of the cystic duct and cystic artery. Firefly biliary imaging was performed during the case that did aid in the dissection and identification of the cystic duct. Once the critical view of safety had been obtained and the posterior aspect of the infundibulum was freed from the underlying liver bed fossa and the only remaining structures that were present coming forth from the infundibulum of the gallbladder were that of the cyst duct and cystic artery, I then elected to proceed with division of the artery and cystic duct. First, a single Hem-o-Marco Antonio clip was then placed upon the cystic artery upon the midportion of the infundibulum of the gallbladder. Additional Hem-o-Marco Antonio clip was just placed proximally. Additional Hem-o-Marco Antonio clip was then placed upon the cystic duct adjacent to the infundibulum of the gallbladder. Additional Hem-o-Marco Antonio clip was then just placed proximally upon the cystic duct. It should be noted that during the process of dissection, one could ascertain that there were several stones somewhat lodged within the neck of the gallbladder. These stones were able to be advanced back into the midportion of the lumen of the stomach during the process of dissection. Next the cystic artery and cystic duct were then divided between the two Hem-o-Marco Antonio clips. Gallbladder was then dissected off the liver bed fossa with use of electrocautery. Gallbladder was then placed in a laparoscopic retrieval bag and removed via the infraumbilical port site. The camera port was then replaced and additional irrigation was then performed. All irrigant was suctioned until clear. Gallbladder fossa was inspected and found to be hemostatic in nature. Previously placed Hem-o-Marco Antonio clips were visualized as well and remained to be intact. Ports were removed under direct visualization. Pneumoperitoneum was then released. Additionally it should be noted that the robot was undocked of course prior to the removal of the gallbladder from the infraumbilical port. Once the previously placed U-stitch had been secured, resulting in imbrication the fascial edges, each skin incision was then closed in a subcuticular fashion with 4-0 Monocryl. Dermabond was then placed overlying the incisions. Patient is in the process of awakening from her anesthetic and will be sent back to the recovery room once deemed in stable condition. Additionally, it should be noted that Иван Aly APRN, was present throughout the entire case and played a pivotal role in providing assistance and exposure during the course of the procedure. YSABEL
[2017-02-05] VITALS (11 sets, daily range): BP systolic 84–127; BP diastolic 51–72; PULSE 50–72; RESP 14–18; TEMP 97.1–98.5; O2SAT 87–95
[2017-02-05] MEDS: NORMAL SALINE 1,000 ML IV SCH ×2 (00:41→23:20)
[2017-02-05] MEDS: MORPHINE SULFATE 2 MG SYRINGE IV PRN ×3 (00:43→06:05)
[2017-02-05] MEDS: LORAZEPAM 2 MG/ML INJECTION IV PRN (01:32)
[2017-02-05] MEDS: LEVETIRACETAM 500 MG TABLET PO SCH ×4 (08:11→21:36)
[2017-02-05] MEDS: GABAPENTIN 600 MG TABLET PO SCH ×5 (08:11→21:35)
[2017-02-05] MEDS: TIZANIDINE 4 MG TABLET PO SCH ×5 (08:11→21:35)
[2017-02-05] MEDS: ZINC OXIDE 40% (Diaper Rash Oint) 56gm TUBE TOP SCH ×4 (08:12→21:37)
[2017-02-05] MEDS: ERTAPENEM 1 G in NORMAL SALINE 100 ML IV SCH (08:12)
[2017-02-05] MEDS: POLYETHYL.GLYCOL 3350 PACKET 17gm PO SCH ×4 (08:13→21:35)
[2017-02-05] MEDS: SENNA + DOCUSATE TAB PO SCH ×4 (08:13→21:36)
[2017-02-05] MEDS ORDERED: ERTAPENEM 1 G in NORMAL SALINE 100 ML IV SCH (09:00)
--- NOTE | 2017-02-05 10:54 | PNPDOC ---
KETTY ÁLVAREZ V PLANT TAXONOMIST 02/05/17 1053: Subjective Date DATE: 02/05/17 TIME: 10:48 Subjective Mary Lou is seen this morning following phone call from nursing staff reporting urinary retention. She did require straight catheterization overnight and has not voided since that time. Bladder scan did reveal greater than 300 ML's. Patient is noted to be mildly hypoxic requiring 1 liter of oxygen by nasal cannula. Nursing staff placed. Smith catheter to monitor and taken output. Nursing also indicates concern for swallow. Upon examination. She is alert and makes good eye contact, however, is nonverbal. Currently on 1 liter of oxygen. Does not appear to be in any acute distress. Objective Vital Signs Vital signs Vital Signs Date Time Temp Pulse Resp B/P Pulse Ox O2 Delivery O2 Flow Rate FiO2 02/05/17 08:42 95 Nasal Cannula 1.00 02/05/17 07:44 66 18 02/05/17 07:41 97.9 103/69 Height (Feet): 4 Height (Inches): 10.00 Weight (Kilograms): 36.600 General General Appearance: Alert, Orientated x 1, Cooperative, No Acute Distress Eyes (Brief) Eyes: FOUND: EOMI ENMT (Brief) ENMT: FOUND: mucosa moist, normal dentition, NOT FOUND: pharnyx erythema Neck (Brief) Neck: FOUND: midline, NOT FOUND: adenopathy, carotid bruits, tracheal deviation Respiratory (Brief) Respiratory: NOT FOUND: wheezes Comments Mild coarse breath sounds Cardiovascular (Brief) Cardiac: FOUND: regular rate, regular rhythm, NOT FOUND: murmur, pedal edema Capillary Refill: <2 sec Abdomen (Brief) Abdominal: FOUND: soft, NOT FOUND: BS normo active x4 (hypoactive bowel sounds) , distended, tender Comments Abdominal incisions without erythema or drainage (Brief) Comments Smith catheter Lymphatic (Brief) Lymphatic: NOT FOUND: adenopathy Musculoskeletal (Brief) Musculoskeletal: NOT FOUND: tenderness Integumentary (Brief) Integumentary: FOUND: dry, pink, warm Neurologic (Brief) Neurological: FOUND: cranial 2-12 intact Psychiatric (Brief) Psychiatric: FOUND: alert, attentive, normal affect Laboratory Laboratory Laboratory Tests 02/03/17 17:18 02/04/17 03:50 Laboratory Tests 02/03/17 17:18 02/04/17 03:50 Microbiology Microbiology Microbiology Date/Time Source Procedure Growth Status 02/03/17 17:18 Peripheral/Iv Start Blood Culture - Preliminary NO GROWTH AFTER 24 HOURS Resulted 02/03/17 17:18 Peripheral/Iv Start Blood Culture - Preliminary NO GROWTH AFTER 24 HOURS Resulted Assessment & Plan Problems: (1) Acute cholecystitis Status: Acute (2) Dysphagia Status: Chronic Assessment & Plan: Right dysphasia, on pured diet (3) Cerebral palsy Status: Chronic (4) Quadriplegia Status: Chronic (5) Mental retardation Status: Chronic (6) Seizure disorder Status: Chronic (7) Cardiomegaly Status: Chronic (8) Complete immobility due to severe physical disability or frailty Status: Chronic (9) H/O spinal fusion Status: Chronic (10) Urinary retention Status: Acute (11) Hypoxia Status: Acute Plan/Intensity of Service 02/05 In light of urinary retention. Did have nursing staff. Place Smith catheter to monitor output more closely. Noted weight is up 2 kilograms. In light of coarse breath sounds and mild hypoxia. Will obtain a 1 view chest x- ray. Patient is at risk for aspiration given her complex comorbidities. Will have speech therapy evaluate patient's swallow today and give dietary recommendations. Will work on weaning down oxygen as able. Also monitor postoperative bowel movements as patient is at risk for bowel obstruction with chronic constipation Appreciate ongoing surgical consultation by Dr. Chaidez. Will recheck CBC and BMP tomorrow morning to follow blood counts, renal function , electrolytes Will discuss further orders and plan of care with attending, Dr. Sandoval ( covering hospitalist) Code Status Do Not Resuscitate Hospital Course Summary Disclaimer The hospital course summary below is not to be considered part of the above Progress Note. Hospital Course Summary 02/03 Admit patient to outpatient observation under the care of Dr. Greene for acute cholecystitis. Laboratory studies are currently pending . CBC, CMP, lipase, blood cultures, venous lactate, pro calcitonin. Will work patient up for acute sepsis. Consultation placed to Dr. Chaidez for further surgical evaluation and treatment. Will start patient on normal saline at 80 ML per hour for gentle hydration She may have Pureed Diet this evening, however, will make patient nothing by mouth after midnight for possible surgical intervention tomorrow. A consider a postoperative speech therapy evaluation given chronic dysphagia. Need to monitor patient carefully postoperatively for ileus or obstruction as patient does have a history of chronic constipation SCDs to bilateral lower extremity for DVT prophylaxis Once home medications are reconciled. These will need to be evaluated and ordered as needed. Again did speak with patient's mother, LILLIANA regarding advanced directives and she does verify the patient is a do not resuscitate. Will discuss further orders and plan of care with attending, Dr. Greene Time of discharge medical care will return to primary care provider, Dr. Justice 02/04/17 Appears medical stable this morning Appreciate surgical consultation by Dr Chaidez. Leukocytosis improved to 8.9. Continues on IV Invanz for antimicrobial coverage. She is currently NPO for possible surgical intervention later today. Will give a one-time dose of IV Keppra 750 milligrams for seizure prophylaxis. Will likely be able to resume oral medications this evening. Morphine as needed for pain control Will monitor airway and dysphagic post-op as patient does have chronic dysphagia and is at high risk for aspiration. Will also need to monitor carefully for postoperative bowel motivation as patient is prone to being constipated. Follow routine labs. 02/05 In light of urinary retention. Did have nursing staff. Place Smith catheter to monitor output more closely. Noted weight is up 2 kilograms. In light of coarse breath sounds and mild hypoxia. Will obtain a 1 view chest x- ray. Patient is at risk for aspiration given her complex comorbidities. Will have speech therapy evaluate patient's swallow today and give dietary recommendations. Will work on weaning down oxygen as able. Also monitor postoperative bowel movements as patient is at risk for bowel obstruction with chronic constipation Appreciate ongoing surgical consultation by Dr. Chaidez. Will recheck CBC and BMP tomorrow morning to follow blood counts, renal function , electrolytes Will discuss further orders and plan of care with attending, Dr. Sandoval ( covering hospitalist) DARLYN SANDOVAL DO 02/05/17 1457: Assessment & Plan Assessment Patient seen and examined for hospitalist service. Above note reviewed and agree. She did have oral intake earlier today. She did have urinary retention which required placement of a Smith catheter. KETTY ÁLVAREZ APRN February 05, 2017 10:53 DARLYN SANDOVAL DO February 05, 2017 14:57
[2017-02-05] MEDS ORDERED: FUROSEMIDE 20 MG/2 ML INJECTION IV ONE (11:15)
--- NOTE | 2017-02-05 11:21 | STEVAL ---
Eval Subjective and History Date/Time of Eval DATE: 02/05/17 TIME: 11:11 Medical Diagnosis SPEECH THERAPY CONSULTATION FOR UNSPECIFIED DYSPHAGIA Treatment Order: Assessment Orientations: Person, Cooperative Primary Complaint: GALLBLADDER SX Pain: No Date of Onset of Primary Com: 02/04/2017 Secondary Complaint: CP/MR/DYSPHAGIA Prior History of This Problem: Yes (CHRONIC) Patient's Goals: NONE STATED. RN REPORTS SHE WOULD LIKE PATIENT TO TAKE HER MEDICATIONS Significant Past Medical Hx: PMH: (1) Acute cholecystitis (2) Dysphagia (3) Cerebral palsy (4) Quadriplegia (5) Mental retardation (6) Seizure disorder (7) Cardiomegaly (8) Complete immobility due to severe physical disability or frailty (9) H/O spinal fusion (10) Urinary retention (11) Hypoxia Medical History Form Reviewed: Yes Residence Type: prison ([facility] [place]) Lives With: Furniture Cleaner Caregiver Status: Yes Current Functional Status: PATIENT LIVES AT [facility] IN [place]. MOTHER REPORTS SHE IS ON A PUREED DIET WITH NECTAR THICKENED LIQUIDS- FEEDER. MOM REPORTS THAT SHE TAKES MEDICATIONS CRUSHED. SHE REQUIRES VERBAL CUES AND A FIRM TACTILE CUE FROM [facility] FOR FEEDING. Education Comment CLEAT BLANKER educated patient on reasoning for evaluation. Patient was agreeable to evaluation. Subjective and History Comment: LISA WAS EVALUATED UPRIGHT IN BED. SHE REQUIRED REPOSITIONING OFTEN TO MAINTAIN UPRIGHT POSITION. RN WAS INITIALLY PRESENT, FOLLOWED BY HER MOTHER. SHE HAD NO ACUTE C/O PAIN OR FATIGUE. SHE HAD MOMENTS OF OUTBURSTS OF TEARS BUT MOTHER STATES SHE IS "OK". Dysphagia Evaluation Evaluation Location: Bed Evaluation Angle: 65 Tongue Elevation: Unable to Elicit Tongue Lateralization: Unable to Elicit Tongue Protrusion: Moderate Impairment (BASELINE PROTRUSION WITHOUT SWALLOW) Tongue Retraction: Mild Impairment Intraoral Air Pressure: Unable to Elicit Volitional Cough: Unable to Elicit Palatal Elevation: Mild Impairment (FREQUENT NASAL SNORTING ) Larynx Elevation During Swallo: Mild Impairment Saliva Control: Moderate Impairment (SALIVA POOLING IN ORAL CAVITY AND LEAKING FROM BOTH SIDES) Oral Peripheral Exam Comment: PATIENT WITH FAIR NATURAL DENTITION. PALATE HIGH AND NARROW. NASAL SNORT PRESENT FREQUENTLY SUGGESTIVE OF POOR BOOSTER STATION OPERATOR CLOSURE. PATIENT WITH MILDLY IMPAIRED LARYNGEAL ELEVATION. PATIENT WITH TONGUE PROTRUSION AT BASELINE. TONGUE BUNCHED AND PROTRUDE WITH SWALLOW- THIS IS BASELINE PER MOTHER. TYPICAL OF PATIENTS WITH CP/MR. Lip Seal: Adequate-pudding Lingual Manipulation: Adequate-pudding Chewing: Adequate-pudding Oral cavity clear post swallow: Adequate-pudding Swallow initiated w/o delay: Adequate-pudding Multiple swallows not needed: Adequate-pudding Voice clear&dry post swallow: Adequate-pudding No cough/throat clear: Adequate-pudding Comments RN REPORTS THAT SHE WAS HAVING DIFFICULTY KEEPING BOLUS IN MOUTH, THEN HAD A COUGHING EPISODE WHEN ATTEMPTING MEDICATIONS IN PUDDING THIS AM. PATIENT WAS GIVEN SPOONFULS OF PUDDING WITH FIRM TACTILE CUE FROM [facility] ONTO MEDIAL TONGUE. SHE THEN CONSUMED MEDICATIONS CRUSHED IN PUDDING WITH SAME TACTILE CUES. FROZEN MAGIC CUP GIVEN VIA [facility] WITH TACTILE CUE TO MEDIAL TONGUE WELL. NO CLINICAL S/S OF ASPIRATION. PROMPT SWALLOW RESPONSE. HYOLARYNGEAL ELEVATION REDUCED UPON PALPATION. Assessment/Plan of Care Speech Therapy Impressions: PATIENT PRESENTS WITH ORAL PHASE DYSPHAGIA. RECOMMEND CONTINUATION OF PUREED DIET WITH NECTAR THICKENED LIQUIDS. PATIENT IS A FEEDER. PATIENT WILL REQUIRE STIMULATION FROM [facility] ON MEDIAL TONGUE TO ELICIT PROMPT SWALLOW RESPONSE AND TO KEEP THE BOLUS IN HER MOUTH. RN NOTIFIED OF HOW TO FEED. MOTHER REPORTS SHE WOULD ASSIST IF NEEDED WITH FEEDING. ST Treatment Plan: Evaluation Only ST Treatment Plan Frequency: N/A Treatment Plan Duration: N/A Date of Visit 02/05/17 Time Visit Began: 10:30 Time Visit Ended: 11:10 ST Assess/Plan of Care: ST Treatment Charge: Swallow Eval Minutes of Individual Therapy: 40 MIGNON ENGEL MS CCC-CLEAT BLANKER February 05, 2017 11:14
--- NOTE | 2017-02-05 14:51 | PNF ---
DATE 02/05/2017 FINDINGS Ms. Young this morning did not appear to be in acute distress.. Nursing staff does state the patient was crying out last evening which is not unexpected given the fact she is mentally handicapped and did undergo operative intervention yesterday. Again, this morning, the patient did not appear to be in acute distress. Vitals: Afebrile. Normotensive. Please refer to EMR. Abdomen: Soft. The patient did not have any element of guarding or rebound upon palpation of her abdomen. Her surgical incisions were clean, dry and intact. ASSESSMENT 31-year-old mentally handicapped female status post laparoscopic cholecystectomy. Patient, overall, appears to be doing well from a clinical standpoint. PLAN From a general surgical standpoint, I do believe the patient could be discharged to home. Will defer further care to hospitalist system. Will continue to follow the patient during her hospitalization. YSABEL
[2017-02-06] VITALS (40 sets, daily range): BP systolic 77–112; BP diastolic 55–71; PULSE 43–61; RESP 14–22; TEMP 96.1–97.4; O2SAT 90–96
[2017-02-06] MEDS ORDERED: NORMAL SALINE 500 ML IV ONE (00:15)
[2017-02-06] MEDS ORDERED: NORMAL SALINE 1,000 ML IV ONE (02:00)
[2017-02-06] MEDS ORDERED: KETOROLAC 15mg/ml INJECTION IV ONE (02:45)
[2017-02-06 05:59] LABS: BASOPHILS % (AUTO) 0.5 % (0-2); EOSINOPHILS # (AUTO) 0.4 T/MM3 (0-0.5); EOSINOPHILS % (AUTO) 6.7 % (0-4); HCT - HEMATOCRIT 35.8 % (36-46); HGB - HEMOGLOBIN 11.6 GM/DL (12-16); IMMATURE GRANULOCYTE # (AUTO) 0.02 T/MM3 (0.00-0.03); IMMATURE GRANULOCYTE % (AUTO) 0.3 % (0.0-0.5); LYMPHOCYTES # (AUTO) 1.6 T/MM3 (1-4.8); LYMPHOCYTES % (AUTO) 25.5 % (23-45); MEAN CORPUSCULAR HGB 28.3 UUG (26-34); MEAN CORPUSCULAR HGB CONC(MCHC 32.4 GM/DL (31-37); MEAN CORPUSCULAR VOLUME 87.3 UM3 (80-100); MEAN PLATELET VOLUME 10.4 UM3 (9.4-12.4); MONOCYTES # (AUTO) 0.6 T/MM3 (0-0.8); NEUTROPHILS #(AUTO)-ABSOLUTE 3.6 T/MM3 (1.8-7.7); WBC - WHITE BLOOD COUNT 6.2 T/MM3 (4.5-11.0)
[2017-02-06 06:12] LABS: ANION GAP 9 MEQ/L (5-15); BUN/CREATININE RATIO 18 RATIO (6-26); CHLORIDE 109 MEQ/L (98-107); CO2 - CARBON DIOXIDE 26 MEQ/L (22-30); CREATININE 0.4 MG/DL (0.7-1.2); GLOMERULAR FILTRATION RATE 184; GLUCOSE 100 MG/DL (65-110); POTASSIUM 3.3 MEQ/L (3.6-5); SODIUM 144 MEQ/L (134-144)
[2017-02-06] MEDS: NORMAL SALINE 1,000 ML IV SCH (08:22)
[2017-02-06] MEDS: ZINC OXIDE 40% (Diaper Rash Oint) 56gm TUBE TOP SCH ×4 (08:23→20:55)
[2017-02-06] MEDS ORDERED: POTASSIUM CHLORIDE 20 MEQ TABLET PO ONE (08:45)
[2017-02-06] MEDS: LEVETIRACETAM 500 MG TABLET PO SCH (09:00)
[2017-02-06] MEDS: TIZANIDINE 4 MG TABLET PO SCH ×4 (09:00→21:00)
[2017-02-06] MEDS: GABAPENTIN 600 MG TABLET PO SCH ×3 (09:00→21:00)
[2017-02-06] MEDS: SENNA + DOCUSATE TAB PO SCH ×2 (09:00→21:00)
[2017-02-06] MEDS: POLYETHYL.GLYCOL 3350 PACKET 17gm PO SCH ×2 (09:00→21:00)
--- NOTE | 2017-02-06 10:10 | PNPDOC ---
Subjective Date DATE: 02/06/17 TIME: 10:00 Subjective Patient seen and examined in her room. Discussed the events of yesterday and last night with nursing staff. Her potassium was a little low this morning and they attempted to give her crushed KCl supplement which was unsuccessful. She simply wouldn't swallow it. She's no longer requiring the oxygen by nasal cannula. Nursing staff was concerned about her low urinary output. However this seemed to be improving when I was in the room she did have urinary in her catheter tubing which we're able to empty into the bag and note that she was indeed increasing urinary output. The reason for the placement of the Smith was due to urinary retention. In order to successfully discharged to [facility] back home, she needed to be off the oxygen which she has, she needs to be able to take oral nutrition which they are struggling with, and will need to have the Smith catheter out. Objective Vital Signs Vital signs Vital Signs 02/05/17 02/06/17 02/06/17 02/06/17 23:52 00:13 00:22 00:34 Temp 97.6 Pulse 50 46 48 49 Resp 14 B/P 84/62 82/62 85/61 81/63 Pulse Ox 93 95 92 94 O2 Delivery Room Air Room Air Room Air Room Air 02/06/17 02/06/17 02/06/17 02/06/17 00:48 00:57 01:12 01:19 Pulse 48 50 47 43 B/P 80/62 81/60 79/55 82/61 Pulse Ox 93 93 93 O2 Delivery Room Air Room Air Room Air 02/06/17 02/06/17 02/06/17 02/06/17 01:36 01:43 02:05 02:11 Pulse 46 48 55 44 B/P 77/58 81/56 80/56 85/62 Pulse Ox 92 92 94 93 O2 Delivery Room Air Room Air Room Air Room Air 02/06/17 02/06/17 02/06/17 02/06/17 02:21 02:51 03:02 03:12 Pulse 46 48 49 50 B/P 80/58 93/66 88/65 86/61 Pulse Ox 93 94 92 93 O2 Delivery Room Air Room Air Room Air Room Air 02/06/17 02/06/17 02/06/17 02/06/17 03:22 03:36 03:48 03:51 Temp 96.9 97.4 Pulse 48 52 48 48 Resp 14 22 B/P 82/60 85/62 85/62 83/60 Pulse Ox 93 91 90 91 O2 Delivery Room Air Room Air Room Air Room Air 02/06/17 02/06/17 02/06/17 02/06/17 04:06 04:21 04:36 04:37 Pulse 45 50 47 47 B/P 86/60 81/58 78/58 82/61 Pulse Ox 91 91 92 90 O2 Delivery Room Air Room Air Room Air Room Air 02/06/17 02/06/17 02/06/17 02/06/17 04:51 05:06 05:21 05:49 Pulse 58 50 48 46 B/P 82/58 82/59 86/60 86/63 Pulse Ox 91 91 95 93 O2 Delivery Room Air Room Air Room Air Room Air 02/06/17 02/06/17 02/06/17 02/06/17 06:22 06:51 08:05 08:07 Temp 97.1 Pulse 50 50 52 52 Resp 18 18 B/P 90/63 104/66 112/71 Pulse Ox 93 92 93 O2 Delivery Room Air Room Air Room Air Height (Feet): 4 Height (Inches): 10.00 Weight (Kilograms): 37.800 General General Appearance: Alert, No Acute Distress Eyes (Brief) Eyes: FOUND: EOMI, PERRL, NOT FOUND: scleral icterus Neck (Brief) Neck Brief: NOT FOUND: JVD, adenopathy, carotid bruits, thyromegaly Respiratory (Brief) Respiratory Brief: FOUND: clear all gaxiola, equal bilaterally, NOT FOUND: rales , wheezes Cardiovascular (Brief) Cardiac: FOUND: regular rate, regular rhythm, NOT FOUND: murmur, pedal edema Abdomen (Brief) Abdominal: FOUND: soft, NOT FOUND: BS normo active x4 (diminished bowel sounds) , distended (Brief) Comments Smith catheter in place. Extremities (Brief) Extremity : Side: Bilateral Extremity Finding: NOT FOUND: edema Lymphatic (Brief) Lymphatic Brief: NOT FOUND: adenopathy, lymphedema Musculoskeletal (Brief) Musculoskeletal Brief: FOUND: spasm Integumentary (Brief) Integumentary: FOUND: dry, pink, warm, NOT FOUND: rash Neurologic (Brief) Comments Cerebral palsy. She does appear to be more alert today. Psychiatric (Brief) Psychiatric: FOUND: alert Laboratory Laboratory Laboratory Tests 02/06/17 04:42 Laboratory Tests 02/06/17 04:42 Microbiology Microbiology Microbiology Date/Time Source Procedure Growth Status 02/03/17 17:18 Peripheral/Iv Start Blood Culture - Preliminary NO GROWTH AFTER 48 HOURS Resulted 02/03/17 17:18 Peripheral/Iv Start Blood Culture - Preliminary NO GROWTH AFTER 48 HOURS Resulted Assessment & Plan Problems: (1) Acute cholecystitis Status: Acute (2) Dysphagia Status: Chronic Assessment & Plan: Right dysphasia, on pured diet (3) Cerebral palsy Status: Chronic (4) Quadriplegia Status: Chronic (5) Mental retardation Status: Chronic (6) Seizure disorder Status: Chronic (7) Cardiomegaly Status: Chronic (8) Complete immobility due to severe physical disability or frailty Status: Chronic (9) H/O spinal fusion Status: Chronic (10) Urinary retention Status: Acute (11) Hypoxia Status: Resolved Assessment Patient seen and examined for hospitalist service. Above note reviewed and agree. She did have oral intake earlier today. She did have urinary retention which required placement of a Smith catheter. 02/06/2017: Mary Lou was seen and examined for the hospitalist service today. She does appear better today. Nursing staff is having trouble getting her to eat for them. She is off of oxygen. She's continues with her Smith catheter. Her potassium is low so I will replace that in her IV fluids. My plan at this point is to remove the Smith catheter later today and see if she voids and if her oral intake improves and her sounds improve I would plan to have her discharged back home tomorrow. Plan/Intensity of Service 02/05 In light of urinary retention. Did have nursing staff. Place Smith catheter to monitor output more closely. Noted weight is up 2 kilograms. In light of coarse breath sounds and mild hypoxia. Will obtain a 1 view chest x- ray. Patient is at risk for aspiration given her complex comorbidities. Will have speech therapy evaluate patient's swallow today and give dietary recommendations. Will work on weaning down oxygen as able. Also monitor postoperative bowel movements as patient is at risk for bowel obstruction with chronic constipation Appreciate ongoing surgical consultation by Dr. Chaidez. Will recheck CBC and BMP tomorrow morning to follow blood counts, renal function , electrolytes Will discuss further orders and plan of care with attending, Dr. Sandoval ( covering hospitalist) Code Status Do Not Resuscitate Hospital Course Summary Disclaimer The hospital course summary below is not to be considered part of the above Progress Note. Hospital Course Summary 02/03 Admit patient to outpatient observation under the care of Dr. Greene for acute cholecystitis. Laboratory studies are currently pending . CBC, CMP, lipase, blood cultures, venous lactate, pro calcitonin. Will work patient up for acute sepsis. Consultation placed to Dr. Chaidez for further surgical evaluation and treatment. Will start patient on normal saline at 80 ML per hour for gentle hydration She may have Pureed Diet this evening, however, will make patient nothing by mouth after midnight for possible surgical intervention tomorrow. A consider a postoperative speech therapy evaluation given chronic dysphagia. Need to monitor patient carefully postoperatively for ileus or obstruction as patient does have a history of chronic constipation SCDs to bilateral lower extremity for DVT prophylaxis Once home medications are reconciled. These will need to be evaluated and ordered as needed. Again did speak with patient's mother, DPJEANINE regarding advanced directives and she does verify the patient is a do not resuscitate. Will discuss further orders and plan of care with attending, Dr. Greene Time of discharge medical care will return to primary care provider, Dr. Justice 02/04/17 Appears medical stable this morning Appreciate surgical consultation by Dr Chaidez. Leukocytosis improved to 8.9. Continues on IV Invanz for antimicrobial coverage. She is currently NPO for possible surgical intervention later today. Will give a one-time dose of IV Keppra 750 milligrams for seizure prophylaxis. Will likely be able to resume oral medications this evening. Morphine as needed for pain control Will monitor airway and dysphagic post-op as patient does have chronic dysphagia and is at high risk for aspiration. Will also need to monitor carefully for postoperative bowel motivation as patient is prone to being constipated. Follow routine labs. 02/05 In light of urinary retention. Did have nursing staff. Place Smith catheter to monitor output more closely. Noted weight is up 2 kilograms. In light of coarse breath sounds and mild hypoxia. Will obtain a 1 view chest x- ray. Patient is at risk for aspiration given her complex comorbidities. Will have speech therapy evaluate patient's swallow today and give dietary recommendations. Will work on weaning down oxygen as able. Also monitor postoperative bowel movements as patient is at risk for bowel obstruction with chronic constipation Appreciate ongoing surgical consultation by Dr. Chaidez. Will recheck CBC and BMP tomorrow morning to follow blood counts, renal function , electrolytes Will discuss further orders and plan of care with attending, Dr. Sandoval ( covering hospitalist) DARLYN SANDOVAL DO February 06, 2017 10:03
[2017-02-06] MEDS: NS KCL 20 MEQ 1,000 ML IV SCH (11:41)
[2017-02-06] MEDS ORDERED: KETOROLAC 15mg/ml INJECTION IV SCH (12:15)
--- NOTE | 2017-02-06 13:19 | DI ---
Indication: ITS.REASON: HYPOXIA PROCEDURE: CHEST 1 VIEW: Encounter: Initial Comparison: January 12, 2017 Findings: Worsening airspace consolidation in the right lower lobe and right midlung. No pneumothorax. Possible small left effusion. Heart size and mediastinal contours are grossly stable. Impression: New right lower lobe pneumonia or aspiration. .
[2017-02-06] MEDS ORDERED: LEVETIRACETAM 750 MG in NORMAL SALINE 100 ML IV ONE (15:15)
[2017-02-06] MEDS ORDERED: NORMAL SALINE 500 ML IV PRN (15:45)
[2017-02-06] MEDS: LEVETIRACETAM 750 MG in NORMAL SALINE 100 ML IV SCH (23:30)
[2017-02-07] VITALS (12 sets, daily range): BP systolic 100–140; BP diastolic 68–94; PULSE 53–82; RESP 16–24; TEMP 96.9–97.4; O2SAT 91–96
[2017-02-07] MEDS: NS KCL 20 MEQ 1,000 ML IV SCH (02:58)
[2017-02-07] MEDS: KETOROLAC 30mg/ml INJECTION IV PRN ×2 (04:09→14:34)
[2017-02-07 05:36] LABS: HCT - HEMATOCRIT 37.4 % (36-46); HGB - HEMOGLOBIN 12.3 GM/DL (12-16); MEAN CORPUSCULAR HGB 28.3 UUG (26-34); MEAN CORPUSCULAR HGB CONC(MCHC 32.9 GM/DL (31-37); MEAN CORPUSCULAR VOLUME 86.2 UM3 (80-100); MEAN PLATELET VOLUME 10.1 UM3 (9.4-12.4); RED BLOOD COUNT 4.34 M/MM3 (4.00-5.20); WBC - WHITE BLOOD COUNT 12.3 T/MM3 (4.5-11.0)
[2017-02-07 05:46] LABS: ALBUMIN 2.8 G/DL (3.5-5.0); ANION GAP 10 MEQ/L (5-15); BUN/CREATININE RATIO 15 RATIO (6-26); CALCIUM 8.2 MG/DL (8.4-10.2); CHLORIDE 110 MEQ/L (98-107); CO2 - CARBON DIOXIDE 25 MEQ/L (22-30); CREATININE 0.4 MG/DL (0.7-1.2); GLOMERULAR FILTRATION RATE 184; GLUCOSE 94 MG/DL (65-110); PHOSPHORUS 3.2 MG/DL (2.5-4.5); POTASSIUM 3.6 MEQ/L (3.6-5); SODIUM 145 MEQ/L (134-144)
[2017-02-07 06:21] LABS: EOSINOPHILS # (MANUAL) 0.2 T/MM3 (0-0.5); LYMPHOCYTES # (MANUAL) 1.1 T/MM3 (1-4.8); MONOCYTES # (MANUAL) 0.7 T/MM3 (0-0.8); NEUTROPHILS #(MANUAL)-ABSOLUTE 10.2 T/MM3 (1.8-7.7); TOTAL CELLS COUNTED 100 %
[2017-02-07] MEDS: POLYETHYL.GLYCOL 3350 PACKET 17gm PO SCH ×2 (09:00→21:00)
[2017-02-07] MEDS: SENNA + DOCUSATE TAB PO SCH ×2 (09:00→20:34)
[2017-02-07] MEDS: GABAPENTIN 600 MG TABLET PO SCH ×3 (09:00→20:34)
[2017-02-07] MEDS: TIZANIDINE 4 MG TABLET PO SCH ×4 (09:00→20:35)
--- NOTE | 2017-02-07 09:31 | PNPDOC ---
KETTY ÁLVAREZ V VP RESEARCH 02/07/17 0926: Subjective Date DATE: 02/07/17 TIME: 09:19 Subjective Mary Lou is seen this morning in follow up. She is resting in bed and remains on room air. Noted to have increase oral secretions. Abdomen is soft and appears to be nontender. Abdominal incisions are without erythema or drainage. Will he catheter was removed and patient is voiding, incontinence. Afebrile,and mildly bradycardia intermittently. Objective Vital Signs Vital signs Vital Signs Date Time Temp Pulse Resp B/P Pulse Ox O2 Delivery O2 Flow Rate FiO2 02/07/17 04:18 97.4 55 16 114/85 94 Room Air 02/05/17 12:15 0.50 Height (Feet): 4 Height (Inches): 10.00 Weight (Kilograms): 37.800 General General Appearance: Alert, Orientated x 3, Cooperative, No Acute Distress Eyes (Brief) Eyes: FOUND: EOMI ENMT (Brief) ENMT: FOUND: mucosa moist, normal dentition, NOT FOUND: pharnyx erythema Neck (Brief) Neck: FOUND: midline, NOT FOUND: adenopathy, carotid bruits, tracheal deviation Respiratory (Brief) Respiratory: NOT FOUND: wheezes Comments Diminished bilateral bases Cardiovascular (Brief) Cardiac: FOUND: regular rate, regular rhythm, NOT FOUND: murmur, pedal edema Capillary Refill: <2 sec Abdomen (Brief) Abdominal: FOUND: BS normo active x4, soft, NOT FOUND: distended, tender Lymphatic (Brief) Lymphatic: NOT FOUND: adenopathy Musculoskeletal (Brief) Musculoskeletal: NOT FOUND: tenderness Integumentary (Brief) Integumentary: FOUND: dry, pink, warm Neurologic (Brief) Neurological: FOUND: cranial 2-12 intact Psychiatric (Brief) Psychiatric: FOUND: alert, attentive, normal affect Comments Mentation a baseline, nonverbal Laboratory Laboratory Laboratory Tests 02/06/17 04:42 02/07/17 04:54 Laboratory Tests 02/06/17 04:42 02/07/17 04:54 Assessment & Plan Problems: (1) Acute cholecystitis Status: Acute (2) Dysphagia Status: Chronic Assessment & Plan: Right dysphasia, on pured diet (3) Cerebral palsy Status: Chronic (4) Quadriplegia Status: Chronic (5) Mental retardation Status: Chronic (6) Seizure disorder Status: Chronic (7) Cardiomegaly Status: Chronic (8) 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 Chest x-ray does reveal new right lower lobe pneumonia or aspiration, along with questionable small left effusion. Patient started on Rocephin IV daily for antimicrobial coverage. We'll add DuoNeb breathing treatments 4 times a day. Nursing staff does report patients have increased coughing with attempted swallows. Will have speech therapy reevaluate patient today. Keppra is changed to IV twice a day for seizure prophylaxis. Toradol as needed for pain control Will change the next liter of saline to half-normal saline with 20 of KCl for ongoing hydration Will add Dulcolax suppositories as needed for postoperative bowel motivation even patient's known history of chronic constipation Recheck CBC and BMP tomorrow morning to follow blood counts, renal function, electrolytes Code Status Do Not Resuscitate Hospital Course Summary Disclaimer The hospital course summary below is not to be considered part of the above Progress Note. Hospital Course Summary 02/03 Admit patient to outpatient observation under the care of Dr. Greene for acute cholecystitis. Laboratory studies are currently pending . CBC, CMP, lipase, blood cultures, venous lactate, pro calcitonin. Will work patient up for acute sepsis. Consultation placed to Dr. Chaidez for further surgical evaluation and treatment. Will start patient on normal saline at 80 ML per hour for gentle hydration She may have Pureed Diet this evening, however, will make patient nothing by mouth after midnight for possible surgical intervention tomorrow. A consider a postoperative speech therapy evaluation given chronic dysphagia. Need to monitor patient carefully postoperatively for ileus or obstruction as patient does have a history of chronic constipation SCDs to bilateral lower extremity for DVT prophylaxis Once home medications are reconciled. These will need to be evaluated and ordered as needed. Again did speak with patient's mother, DPOA regarding advanced directives and she does verify the patient is a do not resuscitate. Will discuss further orders and plan of care with attending, Dr. Greene Time of discharge medical care will return to primary care provider, Dr. Justice 02/04/17 Appears medical stable this morning Appreciate surgical consultation by Dr Chaidez. Leukocytosis improved to 8.9. Continues on IV Invanz for antimicrobial coverage. She is currently NPO for possible surgical intervention later today. Will give a one-time dose of IV Keppra 750 milligrams for seizure prophylaxis. Will likely be able to resume oral medications this evening. Morphine as needed for pain control Will monitor airway and dysphagic post-op as patient does have chronic dysphagia and is at high risk for aspiration. Will also need to monitor carefully for postoperative bowel motivation as patient is prone to being constipated. Follow routine labs. 02/05 In light of urinary retention. Did have nursing staff. Place Smith catheter to monitor output more closely. Noted weight is up 2 kilograms. In light of coarse breath sounds and mild hypoxia. Will obtain a 1 view chest x- ray. Patient is at risk for aspiration given her complex comorbidities. Will have speech therapy evaluate patient's swallow today and give dietary recommendations. Will work on weaning down oxygen as able. Also monitor postoperative bowel movements as patient is at risk for bowel obstruction with chronic constipation Appreciate ongoing surgical consultation by Dr. Chaidez. Will recheck CBC and BMP tomorrow morning to follow blood counts, renal function , electrolytes Will discuss further orders and plan of care with attending, Dr. Lucas ( covering hospitalist) 02/07 Noted significant increase in WBC count today up to 12.3 with left shift, 83% neutrophils. Chest x-ray does reveal new right lower lobe pneumonia or aspiration, along with questionable small left effusion. Patient started on Rocephin IV daily for antimicrobial coverage. We'll add DuoNeb breathing treatments 4 times a day. Nursing staff does report patients have increased coughing with attempted swallows. Will have speech therapy reevaluate patient today. Keppra is changed to IV twice a day for seizure prophylaxis. Toradol as needed for pain control Will change the next liter of saline to half-normal saline with 20 of KCl for ongoing hydration Will add Dulcolax suppositories as needed for postoperative bowel motivation even patient's known history of chronic constipation Recheck CBC and BMP tomorrow morning to follow blood counts, renal function, electrolytes MIGUE GREENE MD 02/07/17 1314: Assessment & Plan Problems: (1) Acute cholecystitis Status: Acute Assessment & Plan: 02/04: Cholecystectomy by Dr Chaidez. (2) Dysphagia Status: Chronic Assessment & Plan: Right dysphasia, on pured diet (3) Cerebral palsy Status: Chronic (4) Quadriplegia Status: Chronic (5) Mental retardation Status: Chronic (6) Seizure disorder Status: Chronic (7) Cardiomegaly Status: Chronic (8) Complete immobility due to severe physical disability or frailty Status: Chronic (9) H/O spinal fusion Status: Chronic (10) Urinary retention Status: Resolved (11) Hypoxia Status: Resolved (12) Hospital-acquired pneumonia Status: Acute Assessment & Plan: Possible aspiration due to pt chronic dysphagia. Plan/Intensity of Service Have independently interviewed and examined pt. Chart reviewed. Case discussed with my VP RESEARCH. Care plan developed with my supervision; agree with above. Resting in bed comfortably this afternoon. Non-verbal. Does not look like she is having pain. No pain when abdomen palpated. Lungs: decreased, no distress on RA CV: regular AB: soft, slight distention. NT. BS decreased EXT: thin and without edema MSE: awake, not agitated or restless Plan: Rocephin and clindamycin for pulmonary coverage. Continue 1/2NS with potassium for hydration. Encourage oral intake as able. Monitor lab. DVT Prophylaxis: SCD'S KETTY ÁLVAREZ APRN February 07, 2017 09:26 MIGUE GREENE MD February 07, 2017 13:14
[2017-02-07] MEDS: ZINC OXIDE 40% (Diaper Rash Oint) 56gm TUBE TOP SCH ×4 (09:59→20:36)
[2017-02-07] MEDS: 1/2 NS w/ KCL 20mEq 1,000 ML IV SCH (09:59)
[2017-02-07] MEDS: LEVETIRACETAM 750 MG in NORMAL SALINE 100 ML IV SCH ×3 (10:05→21:48)
[2017-02-07] MEDS: ALBUTEROL/IPRATROPIUM INHAL. 2.5mg-0.5mg/3ml Neb. AEROSOL SCH ×3 (10:36→19:09)
[2017-02-07] MEDS: CEFTRIAXONE 1 G in NORMAL SALINE 100 ML IV SCH (10:45)
[2017-02-07] MEDS: CLINDAMYCIN 600mg IVPB 50 ML IV SCH ×2 (16:41→20:35)
[2017-02-07] MEDS ORDERED: NORMAL SALINE 500 ML IV PRN (21:45)
[2017-02-07] MEDS ORDERED: LEVETIRACETAM 750 MG in NORMAL SALINE 100 ML IV SCH (23:30)
[2017-02-08] VITALS (11 sets, daily range): BP systolic 118–146; BP diastolic 72–108; PULSE 52–98; RESP 16–24; TEMP 96.9–98.7; O2SAT 92–96
[2017-02-08] MEDS: 1/2 NS w/ KCL 20mEq 1,000 ML IV SCH ×2 (00:05→01:00)
[2017-02-08] MEDS: KETOROLAC 30mg/ml INJECTION IV PRN ×3 (02:45→21:20)
[2017-02-08] MEDS: CLINDAMYCIN 600mg IVPB 50 ML IV SCH ×4 (03:00→20:30)
[2017-02-08 05:34] LABS: ANION GAP 11 MEQ/L (5-15); BUN/CREATININE RATIO 13 RATIO (6-26); CALCIUM 8.7 MG/DL (8.4-10.2); CHLORIDE 109 MEQ/L (98-107); CO2 - CARBON DIOXIDE 25 MEQ/L (22-30); CREATININE 0.3 MG/DL (0.7-1.2); GLOMERULAR FILTRATION RATE 256; GLUCOSE 92 MG/DL (65-110); SODIUM 145 MEQ/L (134-144)
[2017-02-08 05:38] LABS: BASOPHILS % (AUTO) 0.5 % (0-2); EOSINOPHILS # (AUTO) 0.6 T/MM3 (0-0.5); EOSINOPHILS % (AUTO) 6.3 % (0-4); HCT - HEMATOCRIT 37.8 % (36-46); HGB - HEMOGLOBIN 12.4 GM/DL (12-16); IMMATURE GRANULOCYTE # (AUTO) 0.05 T/MM3 (0.00-0.03); IMMATURE GRANULOCYTE % (AUTO) 0.6 % (0.0-0.5); LYMPHOCYTES # (AUTO) 2.1 T/MM3 (1-4.8); LYMPHOCYTES % (AUTO) 23.6 % (23-45); MEAN CORPUSCULAR HGB 28.4 UUG (26-34); MEAN CORPUSCULAR HGB CONC(MCHC 32.8 GM/DL (31-37); MEAN CORPUSCULAR VOLUME 86.7 UM3 (80-100); MEAN PLATELET VOLUME 10.5 UM3 (9.4-12.4); MONOCYTES # (AUTO) 0.8 T/MM3 (0-0.8); MONOCYTES % (AUTO) 8.9 % (0-9.0); NEUTROPHILS #(AUTO)-ABSOLUTE 5.2 T/MM3 (1.8-7.7); NEUTROPHILS % (AUTO) 60.1 % (33-66); RED BLOOD COUNT 4.36 M/MM3 (4.00-5.20); WBC - WHITE BLOOD COUNT 8.7 T/MM3 (4.5-11.0)
[2017-02-08] MEDS: ALBUTEROL/IPRATROPIUM INHAL. 2.5mg-0.5mg/3ml Neb. AEROSOL SCH ×4 (07:01→20:44)
--- NOTE | 2017-02-08 07:50 | PNSURG ---
Subjective DATE: 02/08/17 TIME: 07:45 Interval History She is calm this morning, looking around the room. Does not express signs of pain with abd palpation. Incisions well approximated, Dermabond in tact, no erythema. Pathology is pending. From general surgery standpoint, she is ok to be discharged if oral intake is adequate. Follow up with Dm prn. She is on Miralax BID and Senna plus suppository prn for chronic constipation. Hs been having moderate soft stools. Objective Vital Signs Date Time Temp Pulse Resp B/P Pulse Ox O2 Delivery O2 Flow Rate FiO2 02/08/17 07:03 70 02/08/17 07:01 24 92 02/08/17 04:56 97.2 123/80 Room Air 02/05/17 12:15 0.50 Height (Feet): 4 Height (Inches): 10.00 Weight (Kilograms): 37.800 BMI 23.0 General Appearance: Awake Respiratory: FOUND: clear bilaterally Cardiac: FOUND: regular rate, regular rhythm Abdominal Brief: FOUND: soft, NOT FOUND: tender Incision: FOUND: Clean, Dry, Intact, open to air (Dermabond glue in tact), NOT FOUND: erythema Laboratory Item Value Date Time Total Bilirubin 0.60 MG/DL 02/08/17 0450 Aspartate Amino Transf (AST/SGOT) 38 U/L H 02/08/17 0450 Alanine Aminotransferase (ALT/SGPT) 45 U/L 02/08/17 0450 Alkaline Phosphatase 124 U/L 02/08/17 0450 Total Bilirubin 0.30 MG/DL 02/03/17 1718 Aspartate Amino Transf (AST/SGOT) 23 U/L 02/03/17 1718 Alanine Aminotransferase (ALT/SGPT) 36 U/L 02/03/17 1718 Alkaline Phosphatase 134 U/L H 02/03/17 1718 Laboratory Tests 02/06/17 04:42 02/07/17 04:54 02/08/17 04:50 Laboratory Tests 02/06/17 04:42 02/07/17 04:54 02/08/17 04:50 Pathology gallbladder = pending Procedure Procedure Date: February 04, 2017 Surgeon: Dm Mott Robotic assisted laparoscopic cholecystectomy with [employer] imaging GS Assessment & Plan Problems: (1) Acute cholecystitis Status: Resolved Assessment Incisions well approximated, Dermabond in tact, no erythema. Pathology is pending. LFT's and bilirubin are stable/normal. From general surgery standpoint, she is ok to be discharged. Follow up with Dm mcdonald. Code Status Do Not Resuscitate Hospital Course Summary Disclaimer The visit summary below is not to be considered part of the above Progress Note. Hospital Course Summary 02/03 Admit patient to outpatient observation under the care of Dr. Greene for acute cholecystitis. Laboratory studies are currently pending . CBC, CMP, lipase, blood cultures, venous lactate, pro calcitonin. Will work patient up for acute sepsis. Consultation placed to Dr. Chaidez for further surgical evaluation and treatment. Will start patient on normal saline at 80 ML per hour for gentle hydration She may have Pureed Diet this evening, however, will make patient nothing by mouth after midnight for possible surgical intervention tomorrow. A consider a postoperative speech therapy evaluation given chronic dysphagia. Need to monitor patient carefully postoperatively for ileus or obstruction as patient does have a history of chronic constipation SCDs to bilateral lower extremity for DVT prophylaxis Once home medications are reconciled. These will need to be evaluated and ordered as needed. Again did speak with patient's mother, DPOA regarding advanced directives and she does verify the patient is a do not resuscitate. Will discuss further orders and plan of care with attending, Dr. Greene Time of discharge medical care will return to primary care provider, Dr. Justice 02/04/17 Appears medical stable this morning Appreciate surgical consultation by Dr Chaidez. Leukocytosis improved to 8.9. Continues on IV Invanz for antimicrobial coverage. She is currently NPO for possible surgical intervention later today. Will give a one-time dose of IV Keppra 750 milligrams for seizure prophylaxis. Will likely be able to resume oral medications this evening. Morphine as needed for pain control Will monitor airway and dysphagic post-op as patient does have chronic dysphagia and is at high risk for aspiration. Will also need to monitor carefully for postoperative bowel motivation as patient is prone to being constipated. Follow routine labs. 02/05 In light of urinary retention. Did have nursing staff. Place Smith catheter to monitor output more closely. Noted weight is up 2 kilograms. In light of coarse breath sounds and mild hypoxia. Will obtain a 1 view chest x- ray. Patient is at risk for aspiration given her complex comorbidities. Will have speech therapy evaluate patient's swallow today and give dietary recommendations. Will work on weaning down oxygen as able. Also monitor postoperative bowel movements as patient is at risk for bowel obstruction with chronic constipation Appreciate ongoing surgical consultation by Dr. Chaidez. Will recheck CBC and BMP tomorrow morning to follow blood counts, renal function , electrolytes Will discuss further orders and plan of care with attending, Dr. Lucas ( covering hospitalist) 02/07 Noted significant increase in WBC count today up to 12.3 with left shift, 83% neutrophils. Chest x-ray does reveal new right lower lobe pneumonia or aspiration, along with questionable small left effusion. Patient started on Rocephin IV daily for antimicrobial coverage. We'll add DuoNeb breathing treatments 4 times a day. Nursing staff does report patients have increased coughing with attempted swallows. Will have speech therapy reevaluate patient today. Keppra is changed to IV twice a day for seizure prophylaxis. Toradol as needed for pain control Will change the next liter of saline to half-normal saline with 20 of KCl for ongoing hydration Will add Dulcolax suppositories as needed for postoperative bowel motivation even patient's known history of chronic constipation Recheck CBC and BMP tomorrow morning to follow blood counts, renal function, electrolytes JULIA GLASGOW APRN February 08, 2017 07:49
[2017-02-08 08:57] LABS: ALBUMIN 3.1 G/DL (3.5-5.0); ALBUMIN/GLOBULIN RATIO 1.1 RATIO (1.1-2.2); ALKALINE PHOSPHATASE 124 U/L (38-126); ALT (SGPT) 45 U/L (9-52); AST (SGOT) 38 U/L (14-36); TOTAL PROTEIN 5.9 G/DL (6.3-8.2)
[2017-02-08] MEDS: ZINC OXIDE 40% (Diaper Rash Oint) 56gm TUBE TOP SCH ×4 (08:58→21:33)
[2017-02-08] MEDS: TIZANIDINE 4 MG TABLET PO SCH ×4 (09:00→21:46)
[2017-02-08] MEDS: GABAPENTIN 600 MG TABLET PO SCH ×3 (09:00→21:46)
[2017-02-08] MEDS: SENNA + DOCUSATE TAB PO SCH ×2 (09:00→21:46)
[2017-02-08] MEDS: POLYETHYL.GLYCOL 3350 PACKET 17gm PO SCH ×2 (09:00→21:00)
[2017-02-08] MEDS: LEVETIRACETAM 750 MG in NORMAL SALINE 100 ML IV SCH ×2 (09:35→21:33)
[2017-02-08] MEDS: CEFTRIAXONE 1 G in NORMAL SALINE 100 ML IV SCH (10:05)
[2017-02-08] MEDS: 1/2 NS 1,000 ML IV SCH (16:14)
--- NOTE | 2017-02-08 16:25 | PNPDOC ---
Subjective Date DATE: 02/08/17 TIME: 16:11 Subjective F/U: Acute cholecystitis, Pneumonia Doing okay. Oral drive better this afternoon. Taking in more, with less secretions. Toradol helping pain-looks more comfortable. Breathing comfortably on RA. Objective Vital Signs Vital signs Vital Signs Date Time Temp Pulse Resp B/P Pulse Ox O2 Delivery O2 Flow Rate FiO2 02/08/17 16:10 97.5 82 20 123/83 95 Room Air 02/08/17 12:46 0.50 Height (Feet): 4 Height (Inches): 10.00 Weight (Kilograms): 38.440 General General Appearance: Alert, Well Developed, Looks Stated Age Eyes (Brief) Eyes: FOUND: EOMI, PERRL, NOT FOUND: scleral icterus ENMT (Brief) ENMT: FOUND: mucosa moist Neck (Brief) Neck: FOUND: midline Respiratory (Brief) Respiratory: FOUND: clear all [place], equal bilaterally, NOT FOUND: rales, wheezes Cardiovascular (Brief) Cardiac: FOUND: regular rate, regular rhythm Abdomen (Brief) Abdominal: FOUND: BS normo active x4, soft, NOT FOUND: distended, tender Extremities (Brief) Extremity : Side: Bilateral Extremity: leg Extremity Finding: NOT FOUND: edema Musculoskeletal (Brief) Musculoskeletal: FOUND: spasm (Chronic spasm of upper ext ) Integumentary (Brief) Integumentary: FOUND: dry, warm Neurologic (Brief) Neurological: FOUND: cranial 2-12 intact, motor (basline ) Psychiatric (Brief) Psychiatric: FOUND: alert Laboratory Laboratory Laboratory Tests 02/07/17 04:54 02/08/17 04:50 Laboratory Tests 02/07/17 04:54 02/08/17 04:50 Assessment & Plan Problems: (1) Acute cholecystitis Status: Resolved Assessment & Plan: 02/04: Cholecystectomy by Dr Chaidez. (2) Hospital-acquired pneumonia Status: Acute Assessment & Plan: Possible aspiration due to pt chronic dysphagia. (3) Dysphagia Status: Chronic Qualifiers: Dysphagia type: oropharyngeal phase Qualified Codes: R13.12 - Dysphagia, oropharyngeal phase Assessment & Plan: Right dysphasia, on pured diet (4) Cerebral palsy Status: Chronic (5) Quadriplegia Status: Chronic (6) Mental retardation Status: Chronic (7) Seizure disorder Status: Chronic (8) Cardiomegaly Status: Chronic (9) Complete immobility due to severe physical disability or frailty Status: Chronic (10) H/O spinal fusion Status: Chronic (11) Urinary retention Status: Resolved (12) Hypoxia Status: Resolved Plan/Intensity of Service Continue with Rocephin and clindamycin for pulmonary coverage. Change IVF to 1/2NS and decrease rate to 50 cc/hr. Continue speech care for oral intake. Recheck BMP in am due to IVF use. Recheck CBC in am due to resolving pneumonia. Hope for discharge in near future if continues to do well. Case discussed with nursing and CM. Time spent with patient care 25minutes. DVT Prophylaxis: SCD'S Code Status Do Not Resuscitate Hospital Course Summary Disclaimer The hospital course summary below is not to be considered part of the above Progress Note. Hospital Course Summary 02/03 Admit patient to outpatient observation under the care of Dr. Greene for acute cholecystitis. Laboratory studies are currently pending . CBC, CMP, lipase, blood cultures, venous lactate, pro calcitonin. Will work patient up for acute sepsis. Consultation placed to Dr. Chaidez for further surgical evaluation and treatment. Will start patient on normal saline at 80 ML per hour for gentle hydration She may have Pureed Diet this evening, however, will make patient nothing by mouth after midnight for possible surgical intervention tomorrow. A consider a postoperative speech therapy evaluation given chronic dysphagia. Need to monitor patient carefully postoperatively for ileus or obstruction as patient does have a history of chronic constipation SCDs to bilateral lower extremity for DVT prophylaxis Once home medications are reconciled. These will need to be evaluated and ordered as needed. Again did speak with patient's mother, DPOA regarding advanced directives and she does verify the patient is a do not resuscitate. Will discuss further orders and plan of care with attending, Dr. Greene Time of discharge medical care will return to primary care provider, Dr. Justice 02/04/17 OP Day Appears medical stable this morning Appreciate surgical consultation by Dr Chaidez. Leukocytosis improved to 8.9. Continues on IV Invanz for antimicrobial coverage. She is currently NPO for possible surgical intervention later today. Will give a one-time dose of IV Keppra 750 milligrams for seizure prophylaxis. Will likely be able to resume oral medications this evening. Morphine as needed for pain control Will monitor airway and dysphagic post-op as patient does have chronic dysphagia and is at high risk for aspiration. Will also need to monitor carefully for postoperative bowel motivation as patient is prone to being constipated. Follow routine labs. 02/05 In light of urinary retention. Did have nursing staff. Place Smith catheter to monitor output more closely. Noted weight is up 2 kilograms. In light of coarse breath sounds and mild hypoxia. Will obtain a 1 view chest x- ray. Patient is at risk for aspiration given her complex comorbidities. Will have speech therapy evaluate patient's swallow today and give dietary recommendations. Will work on weaning down oxygen as able. Also monitor postoperative bowel movements as patient is at risk for bowel obstruction with chronic constipation Appreciate ongoing surgical consultation by Dr. Chaidez. Will recheck CBC and BMP tomorrow morning to follow blood counts, renal function , electrolytes Will discuss further orders and plan of care with attending, Dr. Lucas ( covering hospitalist) 02/06 Mary Lou was seen and examined for the hospitalist service today. She does appear better today. Nursing staff is having trouble getting her to eat for them. She is off of oxygen. She's continues with her Smith catheter. Her potassium is low so I will replace that in her IV fluids. My plan at this point is to remove the Smith catheter later today and see if she voids and if her oral intake improves and her sounds improve I would plan to have her discharged back home tomorrow. 02/07 Noted significant increase in WBC count today up to 12.3 with left shift, 83% neutrophils. Chest x-ray does reveal new right lower lobe pneumonia or aspiration, along with questionable small left effusion. Patient started on Rocephin IV daily for antimicrobial coverage. We'll add DuoNeb breathing treatments 4 times a day. Nursing staff does report patients have increased coughing with attempted swallows. Will have speech therapy reevaluate patient today. Keppra is changed to IV twice a day for seizure prophylaxis. Toradol as needed for pain control Will change the next liter of saline to half-normal saline with 20 of KCl for ongoing hydration Will add Dulcolax suppositories as needed for postoperative bowel motivation even patient's known history of chronic constipation Recheck CBC and BMP tomorrow morning to follow blood counts, renal function, electrolytes 02/[address] better this afternoon. Taking in more, with less secretions. Toradol helping pain-looks more comfortable. Breathing comfortably on RA. WBC to normal. Potassium normalized. Bowel moving - no loose stool. Continue with Rocephin and clindamycin for pulmonary coverage. Change IVF to 1/2NS and decrease rate to 50 cc/hr. Continue speech care for oral intake. Recheck BMP in am due to IVF use. Recheck CBC in am due to resolving pneumonia. Hope for discharge in near future if continues to do well. MIGUE GREENE MD February 08, 2017 16:14
[2017-02-08] MEDS: LORAZEPAM 2 MG/ML INJECTION IV PRN (22:25)
[2017-02-09 00:08] VITALS: BP 104/53; PULSE 50; RESP 18; TEMP 96.5; O2SAT 95
[2017-02-09] MEDS: CLINDAMYCIN 600mg IVPB 50 ML IV SCH ×2 (03:29→08:57)
[2017-02-09 04:22] VITALS: BP 121/75; PULSE 56; RESP 16; TEMP 97.9; O2SAT 97
[2017-02-09 05:24] LABS: HCT - HEMATOCRIT 37.4 % (36-46); HGB - HEMOGLOBIN 12.4 GM/DL (12-16); MEAN CORPUSCULAR HGB 28.9 UUG (26-34); MEAN CORPUSCULAR HGB CONC(MCHC 33.2 GM/DL (31-37); MEAN CORPUSCULAR VOLUME 87.2 UM3 (80-100); MEAN PLATELET VOLUME 10.5 UM3 (9.4-12.4); RED BLOOD COUNT 4.29 M/MM3 (4.00-5.20); WBC - WHITE BLOOD COUNT 5.9 T/MM3 (4.5-11.0)
[2017-02-09 05:32] LABS: ANION GAP 13 MEQ/L (5-15); BUN/CREATININE RATIO 8 RATIO (6-26); CALCIUM 8.7 MG/DL (8.4-10.2); CHLORIDE 104 MEQ/L (98-107); CO2 - CARBON DIOXIDE 29 MEQ/L (22-30); CREATININE 0.4 MG/DL (0.7-1.2); GLOMERULAR FILTRATION RATE 184; GLUCOSE 110 MG/DL (65-110); POTASSIUM 3.8 MEQ/L (3.6-5); SODIUM 146 MEQ/L (134-144)
[2017-02-09 07:01] LABS: BAND NEUTROPHILS # 0.1 T/MM3; EOSINOPHILS # (MANUAL) 0.7 T/MM3 (0-0.5); LYMPHOCYTES # (MANUAL) 2.3 T/MM3 (1-4.8); MONOCYTES # (MANUAL) 0.7 T/MM3 (0-0.8); NEUTROPHILS #(MANUAL)-ABSOLUTE 2.1 T/MM3 (1.8-7.7); REACTIVE LYMPHOCYTES # 0.1 T/MM3 (0-0); TOTAL CELLS COUNTED 100 %
[2017-02-09 07:28] VITALS: BP 111/89; PULSE 55; RESP 20; TEMP 96.6; O2SAT 94
[2017-02-09 07:29] VITALS: PULSE 55
[2017-02-09] MEDS: LEVETIRACETAM 500 MG TABLET PO SCH (07:32)
[2017-02-09] MEDS: ALBUTEROL/IPRATROPIUM INHAL. 2.5mg-0.5mg/3ml Neb. AEROSOL SCH ×2 (07:41→11:38)
[2017-02-09 07:42] VITALS: O2SAT 96
[2017-02-09] MEDS: CEFTRIAXONE 1 G in NORMAL SALINE 100 ML IV SCH (07:53)
[2017-02-09] MEDS ORDERED: ESCITALOPRAM 20 MG TABLET PO SCH (09:00)
[2017-02-09] MEDS: ZINC OXIDE 40% (Diaper Rash Oint) 56gm TUBE TOP SCH ×2 (09:46→14:06)
[2017-02-09] MEDS: SENNA + DOCUSATE TAB PO SCH (09:46)
[2017-02-09] MEDS: TIZANIDINE 4 MG TABLET PO SCH ×2 (09:46→14:06)
[2017-02-09] MEDS: POLYETHYL.GLYCOL 3350 PACKET 17gm PO SCH (09:46)
[2017-02-09] MEDS: GABAPENTIN 600 MG TABLET PO SCH (09:47)
[2017-02-09] MEDS: LEVETIRACETAM 750 MG in NORMAL SALINE 100 ML IV SCH (10:18)
--- NOTE | 2017-02-09 11:22 | PNPDOC ---
Subjective Date DATE: 02/09/17 TIME: 11:17 Subjective F/U: Acute cholecystitis, Pneumonia Improving. Oral drive increasing. Pain decreasing. Breathing well on RA. WBC normal. No temp elevations. Objective Vital Signs Vital signs Vital Signs Date Time Temp Pulse Resp B/P Pulse Ox O2 Delivery O2 Flow Rate FiO2 02/09/17 07:52 48 02/09/17 07:42 18 96 02/09/17 07:28 96.6 111/89 Room Air 02/08/17 12:46 Height (Feet): 4 Height (Inches): 10.00 Weight (Kilograms): 38.200 General General Appearance: Alert, Well Nourished, Well Developed, Looks Stated Age Eyes (Brief) Eyes: FOUND: EOMI, PERRL, NOT FOUND: scleral icterus ENMT (Brief) ENMT: FOUND: hearing intact, mucosa moist Neck (Brief) Neck: FOUND: midline, NOT FOUND: nuchal rigidity, spasm Respiratory (Brief) Respiratory: FOUND: clear all g[place], equal bilaterally, NOT FOUND: rales, wheezes Cardiovascular (Brief) Cardiac: FOUND: regular rate, regular rhythm, NOT FOUND: pedal edema Abdomen (Brief) Abdominal: FOUND: BS normo active x4, soft, NOT FOUND: distended Extremities (Brief) Extremity : Side: Bilateral Extremity: leg Extremity Finding: NOT FOUND: edema Musculoskeletal (Brief) Musculoskeletal: FOUND: loss of motion, spasm Integumentary (Brief) Integumentary: FOUND: dry, warm Neurologic (Brief) Neurological: FOUND: cranial 2-12 intact, motor (No acute changes ) Psychiatric (Brief) Psychiatric: FOUND: alert, other (Non verbal. ) Laboratory Laboratory Laboratory Tests 02/08/17 04:50 02/09/17 04:19 Laboratory Tests 02/08/17 04:50 02/09/17 04:19 Assessment & Plan Problems: (1) Acute cholecystitis Status: Resolved Assessment & Plan: 02/04: Cholecystectomy by Dr Chaidez. (2) Hospital-acquired pneumonia Status: Acute Assessment & Plan: Possible aspiration due to pt chronic dysphagia. (3) Dysphagia Status: Chronic Qualifiers: Dysphagia type: oropharyngeal phase Qualified Codes: R13.12 - Dysphagia, oropharyngeal phase Assessment & Plan: Right dysphasia, on pured diet (4) Cerebral palsy Status: Chronic (5) Quadriplegia Status: Chronic (6) Mental retardation Status: Chronic (7) Seizure disorder Status: Chronic (8) Cardiomegaly Status: Chronic (9) Complete immobility due to severe physical disability or frailty Status: Chronic (10) H/O spinal fusion Status: Chronic (11) Urinary retention Status: Resolved (12) Hypoxia Status: Resolved Plan/Intensity of Service Will d/c to [facility] for continuation of care. Augmentin 500mg BID for 5 days for pulm coverage. Encourage oral intake. F/U with Dr Justice in 1 week. May f/u with Dr Chaidez as needed. See orders for details. Case discussed with nursing and CM. Time spent with patient care and discharge 35minutes. DVT Prophylaxis: SCD'S Code Status Do Not Resuscitate Hospital Course Summary Disclaimer The hospital course summary below is not to be considered part of the above Progress Note. Hospital Course Summary 02/03 Admit patient to outpatient observation under the care of Dr. Greene for acute cholecystitis. Laboratory studies are currently pending . CBC, CMP, lipase, blood cultures, venous lactate, pro calcitonin. Will work patient up for acute sepsis. Consultation placed to Dr. Chaidez for further surgical evaluation and treatment. Will start patient on normal saline at 80 ML per hour for gentle hydration She may have Pureed Diet this evening, however, will make patient nothing by mouth after midnight for possible surgical intervention tomorrow. A consider a postoperative speech therapy evaluation given chronic dysphagia. Need to monitor patient carefully postoperatively for ileus or obstruction as patient does have a history of chronic constipation SCDs to bilateral lower extremity for DVT prophylaxis Once home medications are reconciled. These will need to be evaluated and ordered as needed. Again did speak with patient's mother, DPOA regarding advanced directives and she does verify the patient is a do not resuscitate. Will discuss further orders and plan of care with attending, Dr. Greene Time of discharge medical care will return to primary care provider, Dr. Justice 02/04/17 OP Day Appears medical stable this morning Appreciate surgical consultation by Dr Chaidez. Leukocytosis improved to 8.9. Continues on IV Invanz for antimicrobial coverage. She is currently NPO for possible surgical intervention later today. Will give a one-time dose of IV Keppra 750 milligrams for seizure prophylaxis. Will likely be able to resume oral medications this evening. Morphine as needed for pain control Will monitor airway and dysphagic post-op as patient does have chronic dysphagia and is at high risk for aspiration. Will also need to monitor carefully for postoperative bowel motivation as patient is prone to being constipated. Follow routine labs. 02/05 In light of urinary retention. Did have nursing staff. Place Smith catheter to monitor output more closely. Noted weight is up 2 kilograms. In light of coarse breath sounds and mild hypoxia. Will obtain a 1 view chest x- ray. Patient is at risk for aspiration given her complex comorbidities. Will have speech therapy evaluate patient's swallow today and give dietary recommendations. Will work on weaning down oxygen as able. Also monitor postoperative bowel movements as patient is at risk for bowel obstruction with chronic constipation Appreciate ongoing surgical consultation by Dr. Chaidez. Will recheck CBC and BMP tomorrow morning to follow blood counts, renal function , electrolytes Will discuss further orders and plan of care with attending, Dr. Lucas ( covering hospitalist) 02/06 Mary Lou was seen and examined for the hospitalist service today. She does appear better today. Nursing staff is having trouble getting her to eat for them. She is off of oxygen. She's continues with her Smith catheter. Her potassium is low so I will replace that in her IV fluids. My plan at this point is to remove the Smith catheter later today and see if she voids and if her oral intake improves and her sounds improve I would plan to have her discharged back home tomorrow. 02/07 Noted significant increase in WBC count today up to 12.3 with left shift, 83% neutrophils. Chest x-ray does reveal new right lower lobe pneumonia or aspiration, along with questionable small left effusion. Patient started on Rocephin IV daily for antimicrobial coverage. We'll add DuoNeb breathing treatments 4 times a day. Nursing staff does report patients have increased coughing with attempted swallows. Will have speech therapy reevaluate patient today. Keppra is changed to IV twice a day for seizure prophylaxis. Toradol as needed for pain control Will change the next liter of saline to half-normal saline with 20 of KCl for ongoing hydration Will add Dulcolax suppositories as needed for postoperative bowel motivation even patient's known history of chronic constipation Recheck CBC and BMP tomorrow morning to follow blood counts, renal function, electrolytes 02/[address] better this afternoon. Taking in more, with less secretions. Toradol helping pain-looks more comfortable. Breathing comfortably on RA. WBC to normal. Potassium normalized. Bowel moving - no loose stool. Continue with Rocephin and clindamycin for pulmonary coverage. Change IVF to 1/2NS and decrease rate to 50 cc/hr. Continue speech care for oral intake. Recheck BMP in am due to IVF use. Recheck CBC in am due to resolving pneumonia. Hope for discharge in near future if continues to do well. 02/[address] increasing. Pain decreasing. Breathing well on RA. WBC normal. No temp elevations. Will d/c to [facility] for continuation of care. Augmentin 500mg BID for 5 days for pulm coverage. Encourage oral intake. F/U with Dr Justice in 1 week. January f/u with Dr Chaidez as needed. See orders for details. MIGUE GREENE MD February 09, 2017 11:21
[2017-02-09] MEDS ORDERED: AMOX200S10 PO (11:25)
[2017-02-09] MEDS: 1/2 NS 1,000 ML IV SCH (12:46)
[2017-02-09 14:27] VITALS: BP 125/85; PULSE 72; RESP 18; TEMP 98.6; O2SAT 93
--- NOTE | 2017-02-10 16:53 | DSF ---
ADMISSION DIAGNOSIS Acute cholecystitis. DISCHARGE DIAGNOSIS Acute cholecystitis/cholelithiasis--status post robotic-assisted laparoscopic cholecystectomy. ASSOCIATED CONDITIONS AND COMPLICATIONS 1. Dysphagia. 2. Pneumonia--hospital-acquired, possible aspiration. 3. Hypoxemia-- resolved. 4. Cerebral palsy. 5. Quadriplegia. 6. Mental retardation. 7. Seizure disorder. 8. Cardiomegaly. 9. Complete immobility due to severe debility. 10. History of spinal fusion. CONSULTS Dr. Chaidez--Surgery. Speech Therapy. PROCEDURE 06/03/2017: Robotic-assisted laparoscopic cholecystectomy with use of [facility] biliary imaging--Dr. Chaidez. CLINICAL RESUME Mary Lou Young is a 31-year-old female with a history of cerebral palsy and mental retardation. It is reported by her mother and [facility] staff that she has been having intermittent fevers for the past several weeks. Outpatient gallbladder ultrasound was performed on day of presentation. This did reveal acute cholelithiasis as well as wall thickening, suspicious for acute cholecystitis. Due to her ongoing clinical symptoms and need for surgical intervention, Hospitalist Service was contacted. Arrangements for admission were made. Upon arrival she was evaluated. She was alert and oriented at her baseline. Patient is unable to communicate due to her history of cerebral palsy and mental retardation. History is obtained from her mother. For complete details of the H&P refer to that document. LABORATORY White blood count is 11.6, with 64% neutrophils. Hemoglobin is 12.4, with hematocrit 37.2, MCV 86.1, and platelets 330,000. Serum sodium is 142, potassium 4.0, chloride 101, CO2 25, with BUN 12, creatinine 0.4, GFR 184, and blood glucose 112. Transaminases are unremarkable. Lactate is 1.5 with procalcitonin 0.05. Phosphorus is normal at 3.2. HOSPITAL COURSE Patient was initially placed in outpatient observation status at [facility] under the care of Dr. Greene. We initiated her on normal saline at 80 mL an hour to provide hydration. Dr. Chaidez was consulted for surgical evaluation and treatment options. We initiated SCDs for DVT prophylaxis. Keppra was continued IV in light of her seizure disorder. She was made DNR at time of presentation as per her request. Additionally we did start Invanz for antimicrobial coverage. Morphine and Ativan as well as Zofran were made available for symptomatic relief. Dr. Chaidez did interview and examine the patient. He discussed with the patient and family members regarding risk versus benefit versus alternative therapy to cholecystectomy. Informed consent was obtained. On 02/04/2017 she was taken to the operating room where she underwent above-noted procedure. She did tolerate the procedure well. Postoperatively she was having pain and discomfort with Dilaudid narcotic medication used for pain. This did cause some slight decreased respiratory rate. We did initiate Toradol p.r.n. to help with pain control while trying not to decrease her respiratory status. In light of her leukocytosis at presentation and significant underlying debility, we did feel continued care would be needed. We did not feel she would be able to be discharged on 02/04/2017. Admission status was changed to inpatient. By postop day #1, she was having urinary retention so Smith was placed. Chest x-ray was obtained, and we did see some evidence of aspiration. Invanz was continued, ultimately being changed on the 02/07/2017 to Rocephin and clindamycin. Speech Therapy did work with the patient postoperatively. Oral drive and swallow abilities were quite diminished. Ultimately her speech ability did improve. Pain gradually defervesced during the hospitalization. Bowel function did return and she was passing stools well with her home medications. Smith catheter was removed, and the patient was urinating well without Smith. She did develop postop hypoxemia secondary to pneumonia and postoperative status. Her oxygenation improved. By time of discharge she was taking p.o. in well. Vitals were stable and she was afebrile. Her white count was normal at 9.8. Hemoglobin was stable at 12.4. Arrangements for continuation of care at [facility] were made. Patient was able to be discharged to [facility] in stable condition. NARRATIVE DISCLAIMER: Above narrative is a brief summary of the patient's hospitalization. For complete details of the hospital course, refer to the medical record. DISCHARGE CONDITION Stable/good. DIET Pureed diet with nectar-thick liquids. Feeding assistance will be given. Six small meals are recommended. ACTIVITIES As tolerated. MEDICATIONS 1. Augmentin elixir 600 mg/5 mL, 5 mL p.o. b.i.d. x5 days for pneumonia coverage. 2. Tylenol 325 mg two p.o. q.4h. p.r.n. pain. 3. Tylenol Extra Strength two p.o. q.4h. p.r.n. pain. 4. Dulcolax 10 mg [place] p.r.n. 5. Calcium carbonate two tablets q.4h. p.r.n. indigestion. 6. Diazepam 10 mg q.h.s. p.r.n. dental procedures. 7. Benadryl 25 mg one to two q.4h. p.r.n. allergies. 8. Celexa 20 mg daily. 9. Neurontin 600 mg t.i.d. 10. Tussin DM 10 mL q.4h. p.r.n. cough. 11. ProctoCream-HC topically b.i.d. p.r.n. 12. Ibuprofen 200 mg two tablets q.4h. headache. 13. Keppra 750 mg b.i.d. 14. Loperamide 4 mg p.r.n. diarrhea. 15. Maalox p.r.n. 16. Milk of Magnesia 30 mL daily p.r.n. 17. Calmoseptine topically b.i.d. p.r.n. 18. Fleet's enema rectally p.r.n. 19. Naprosyn 220 mg b.i.d. p.r.n. pain. 20. MiraLAX 17 grams b.i.d. 21. Pseudoephedrine 30 mg b.i.d. p.r.n. congestion. 22. Senna-Lax 8.6 mg daily p.r.n. constipation. 23. Senna Plus two tablets b.i.d. 24. Tizanidine 4 mg q.i.d. 25. Triamcinolone topically b.i.d. 26. Desitin topically q.i.d. 27. Ambien 5 mg q.h.s. p.r.n. sleep. FOLLOWUP 1. Patient will follow with Dr. Justice in one week for medical reevaluation. 2. Patient will follow with Dr. Chaidez as needed for surgical needs. INSTRUCTIONS TO PATIENT Informed consent was provided to the patient and family members prior to surgical intervention. At time of discharge, the patient was not given detailed care instructions secondary to her cognitive status and inability to comprehend them. Detailed care instructions were provided to [facility]. They will call Dr. Chaidez if they have any problems related to surgery. They will watch for temperature greater than 100.5 or developing redness, excessive swelling at the incision, or increased pain. If any excessive foul smelling drainage occurs, they will be in contact with Dr. Chaidez promptly. Should these or other problems or need occur, they can be in contact with her care providers. If symptoms become quite dire, she can present to emergency room for acute evaluation. Time spent with discharge greater than 35 minutes. YSABEL
== END 2017-02-09 14:44 | disposition home or self-care (01) | DRG 417 ==
LOC: ED 16:34 → SCU 17:09 → SRG 17:09 → SCU 17:13 → SRG 02-04 13:55
PROVIDERS: ADMIT Hospitalist; ATTEND Hospitalist
PROC: 8E0W4CZ Robotic Assisted Procedure of Trunk Region, Percutaneous Endoscopic Approach (ICD-10-PCS; 2017-02-04)
PROC: 0FT44ZZ Resection of Gallbladder, Percutaneous Endoscopic Approach (ICD-10-PCS; principal; 2017-02-04 16:31)
DX: K81.0 Acute cholecystitis (principal); G82.50 Quadriplegia, unspecified; J69.0 Pneumonitis due to inhalation of food and vomit; R13.10 Dysphagia, unspecified; G80.9 Cerebral palsy, unspecified; F79 Unspecified intellectual disabilities; Z66 Do not resuscitate; E87.6 Hypokalemia; R33.9 Retention of urine, unspecified; I51.7 Cardiomegaly; G40.909 Epilepsy, unspecified, not intractable, without status epilepticus; M62.49 Contracture of muscle, multiple sites; K59.00 Constipation, unspecified; Z98.1 Arthrodesis status
CPT/HCPCS: 47562; S2900; 36415; 36416; 80048; 80053; 80069; 83605; 83690; 84145; 85025; 87040; 88304; 94640; 99218

== ENCOUNTER → 2017-02-03 | Outpatient (CLI) | payer MEDICARE, MEDICAID ==
[~2017-02-03] MED LIST changes: -AMOX500C2 PO; +ERYT1OIN7 OP
--- NOTE | 2017-02-03 08:57 | DI ---
Indication: ITS.REASON: K80.20 GALLBLADDER STONES PROCEDURE: US GALLBLADDER: Encounter: Initial Comparison: None Technique: Grayscale and color Doppler sonographic imaging of the right upper quadrant of the abdomen was performed. Findings: Hepatic parenchyma is poorly visualized due to shadowing. The gallbladder is abnormal and filled with shadowing gallstones. Wall is thickened at just over 3 mm. Visualization is limited due to acoustic shadowing. Sonographic Kwong's sign could not be assessed. Both the intra and extrahepatic biliary system are of normal caliber with the common duct measuring 2 mm in dimension. Pancreas could not be seen due to acoustic shadowing. The right kidney is present without collecting system dilatation. The right kidney measures 10.2 cm in length. Impression: Cholelithiasis with gallbladder wall thickening is compatible with acute cholecystitis in the appropriate clinical setting. .
== END ==
LOC: IMA 07:08
PROVIDERS: ATTEND Nurse Practitioner
DX: K80.20 Calculus of gallbladder without cholecystitis without obstruction (principal)